=== PATIENT | female | born 1940 | race Caucasian/White ===

== ENCOUNTER 2017-11-19 08:11 | Outpatient (CLI) | payer MEDICARE, MEDICAID ==
[~2017-11-19 08:11] MED LIST: HYDR1TAB PO; INSU100C7 SQ; LORA-258 PO; METF-442 PO
[2017-11-19] MEDS ORDERED: REGADENOSON 0.4 MG/5 ML DISP.SYRIN IVP ONE (09:30)
== END 2017-11-19 23:59 | disposition home or self-care (01) ==
LOC: NM 08:11
PROVIDERS: ATTEND Internal Medicine Interventional Cardiology
DX: I25.10 Atherosclerotic heart disease of native coronary artery without angina pectoris (principal); E11.9 Type 2 diabetes mellitus without complications; I25.2 Old myocardial infarction; E78.5 Hyperlipidemia, unspecified; R53.83 Other fatigue
CPT/HCPCS: 78452; A9502; J2785

== ENCOUNTER 2017-11-23 09:31 | Outpatient (CLI) | payer MEDICARE, MEDICAID ==
[2017-11-23 10:06] LABS: BASOPHILS % (AUTO) 0.4 % (0.0-2.0); EOSINOPHILS % (AUTO) 2.8 % (0.0-6.0); HEMATOCRIT 33 % (33-45); HEMOGLOBIN 10.9 g/dL (11.5-14.8); LYMPHOCYTES % (AUTO) 14.4 % (20.0-44.0); MEAN CORPUSCULAR HGB CONC 34 g/dl (31.0-36.0); MEAN CORPUSCULAR VOLUME 79 fL (82-100); MONOCYTES % (AUTO) 6.3 % (2.0-12.0); NEUTROPHILS # (AUTO) 9.7 /CMM (1.8-8.9); NEUTROPHILS % (AUTO) 76.1 % (43.0-81.0); PLATELET COUNT (AUTO) 395 /CMM (150-450); RDW COEFFICIENT OF VARIATION 14.4 (11.5-15.0); RED BLOOD CELL COUNT(AUTO) 4.13 MIL/uL (4.0-5.2); WHITE BLOOD COUNT (AUTO) 12.8 K/uL (4.3-11.0)
[2017-11-23 10:07] LABS: BASOPHILS # (AUTO) 0.1 /CMM (0.0-0.2); LYMPHOCYTES # (AUTO) 1.8 /CMM (0.8-4.8); MONOCYTES # (AUTO) 0.8 /CMM (0.1-1.30)
[2017-11-23 10:23] LABS: ALANINE AMINOTRANSFERASE 22 U/L (12-78); ALBUMIN 4.1 g/dL (3.4-5.0); ALKALINE PHOSPHATASE 74 U/L (46-116); ASPARTATE AMINOTRANSFERASE 15 U/L (15-37); BILIRUBIN,TOTAL 0.3 mg/dL (0.2-1.0); CALCIUM, SERUM 8.8 mg/dL (8.5-10.1); CARBON DIOXIDE 23 mmol/L (21-32); CHLORIDE 102 mmol/L (98-107); GLUCOSE 187 mg/dL (74-106); POTASSIUM 3.5 mmol/L (3.5-5.1); SODIUM SERUM 139 mmol/L (136-145); TOTAL PROTEIN, SERUM 8.1 g/dL (6.4-8.2); UREA NITROGEN, BLOOD 37 mg/dL (7-18)
[2017-11-23 10:35] LABS: CHOLESTEROL 107 mg/dL (<200); HDL CHOLESTEROL 47 mg/dL (40-60); LDL 44 mg/dL (0-99); THYROID STIMULATING HORMONE 0.316 uIU/mL (0.358-3.74); TRIGLYCERIDES 100 mg/dL (30-150)
== END 2017-11-23 23:59 | disposition home or self-care (01) ==
LOC: LAB 09:31
PROVIDERS: ATTEND Internal Medicine Interventional Cardiology
DX: E11.9 Type 2 diabetes mellitus without complications (principal); I25.10 Atherosclerotic heart disease of native coronary artery without angina pectoris; E78.5 Hyperlipidemia, unspecified; R53.83 Other fatigue
CPT/HCPCS: 36415; 80053-TC; 80061-TC; 84439-TC; 84443-TC; 85025-TC

== ENCOUNTER 2020-04-09 16:19 | Emergency (ER) | payer MEDICARE, OTHER ==
[~2020-04-09] VITALS: Ht 160 cm; Wt 70.3 kg
[~2020-04-09 16:19] MED LIST changes: +ALBU18HF2 IH; +ALPR0.5T8 PO; +AMLO5TAB9 PO; +ASPI-1420 PO; +ATOR40TA PO; +CARV12.52 PO; +CLON0.1T PO; +DULO60CA64 PO; +ERGO500014 PO; +ESOM40CA52 PO; +FERR325T23 PO; +FURO40TA5 PO; +GABA-534 PO; +GLIM4TAB37 PO; -HYDR1TAB PO; +ICOS1CAP PO; -INSU100C7 SQ; +LEVO88TA5 PO; -LORA-258 PO; +LOSA1TAB42 PO; +MECL-159 PO; -METF-442 PO; +MONT10TA22 PO; +OLOP2.5D5 EACHEYE; +SITA1TAB6 PO; +TICA90TA PO
--- NOTE | 2020-04-09 16:19 | NUR ---
PT BIB FAMILY C/O GEN WEAKNESS FOR 2 WEEKS. PT IS AAOX3, NOT IN RESPIRATORY DISTRESS, HOOKED TO STUDENT LIFE COORDINATOR, KEPT RESTED AND COMFORTABLE. WILL CONTINUE TO MONITOR.
--- NOTE | 2020-04-09 16:39 | NUR ---
URINE SPECIMEN COLLECTED AND SENT TO LAB.
--- NOTE | 2020-04-09 16:43 | NUR ---
SEEN AND EXAMINED BY .
--- NOTE | 2020-04-09 16:50 | NUR ---
IV LINE ESTABLISHED BLOOD DRAWN AND SENT TO LAB.
--- NOTE | 2020-04-09 16:55 | NUR ---
FAMILY AT BEDSIDE TO TRANSLATE
[2020-04-09 16:58] LABS: BASOPHILS # (AUTO) 0.1 /CMM (0.0-0.2); BASOPHILS % (AUTO) 0.6 % (0.0-2.0); EOSINOPHILS % (AUTO) 1.6 % (0.0-6.0); HEMATOCRIT 36 % (33-45); HEMOGLOBIN 11.5 g/dL (11.5-14.8); LYMPHOCYTES # (AUTO) 1.4 /CMM (0.8-4.8); LYMPHOCYTES % (AUTO) 13.1 % (20.0-44.0); MEAN CORPUSCULAR HGB CONC 32 g/dl (31.0-36.0); MEAN CORPUSCULAR VOLUME 85 fL (82-100); MONOCYTES # (AUTO) 0.8 /CMM (0.1-1.30); MONOCYTES % (AUTO) 7.8 % (2.0-12.0); NEUTROPHILS # (AUTO) 8.3 /CMM (1.8-8.9); NEUTROPHILS % (AUTO) 76.9 % (43.0-81.0); PLATELET COUNT (AUTO) 312 /CMM (150-450); RED BLOOD CELL COUNT(AUTO) 4.19 MIL/uL (4.0-5.2); WHITE BLOOD COUNT (AUTO) 10.9 K/uL (4.3-11.0)
[2020-04-09] MEDS ORDERED: ASCO500T20 PO (16:58)
[2020-04-09] MEDS ORDERED: ZOLP5TAB8 PO (16:58)
[2020-04-09] MEDS ORDERED: RIVA2.5T PO (16:58)
[2020-04-09] MEDS ORDERED: AMLO10TA7 PO (16:58)
[2020-04-09] MEDS ORDERED: HYDR25TA4 PO (16:58)
[2020-04-09] MEDS ORDERED: OMEP40CA13 PO (16:58)
[2020-04-09] MEDS ORDERED: HYDR-4077 PO (16:58)
[2020-04-09] MEDS ORDERED: LEVO100T9 PO (16:58)
[2020-04-09] MEDS ORDERED: DOXA2TAB2 PO (16:58)
[2020-04-09] MEDS ORDERED: TELM80TA9 PO (16:58)
[2020-04-09 17:03] LABS: APPEARANCE,URINE Clear (CLEAR); BILIRUBIN,URINE Negative (NEGATIVE); BLOOD, URINE Negative Ery/uL (NEGATIVE); COLOR,URINE Yellow (YELLOW); KETONES,URINE Negative (NEGATIVE); LEUKOCYTE ESTERASE ,URINE Negative (NEGATIVE); NITRITE, URINE Negative (NEGATIVE); PH,URINE 5.5 (5.0-8.0); PROTEIN,URINE Negative (NEGATIVE); UGLUCOSE Negative (NEGATIVE); UROBILINOGEN,URINE 0.2 EU/dL (0.2)
--- NOTE | 2020-04-09 17:05 | NUR ---
SURVEILLANCE AGENT AT BEDSIDE FOR XRAY.
--- NOTE | 2020-04-09 17:14 | NUR ---
PT IS WHEELED TO CT SCAN VIA [facility].
[2020-04-09 17:17] LABS: CALCIUM, SERUM 8.3 mg/dL (8.5-10.1); CARBON DIOXIDE 29 mmol/L (21-32); CHLORIDE 99 mmol/L (98-107); CREATININE 2.4 mg/dL (0.6-1.3); GLUCOSE 331 mg/dL (74-106); POTASSIUM 3.9 mmol/L (3.5-5.1); SODIUM SERUM 138 mmol/L (136-145); UREA NITROGEN, BLOOD 41 mg/dL (7-18)
[2020-04-09 17:29] LABS: ALANINE AMINOTRANSFERASE 20 U/L (12-78); ALBUMIN 3.8 g/dL (3.4-5.0); ALKALINE PHOSPHATASE 70 U/L (46-116); ASPARTATE AMINOTRANSFERASE 10 U/L (15-37); B-TYPE NATRIURETIC PEPTIDE 3000 PG/ML (0-125); BILIRUBIN,DIRECT 0.2 mg/dL (0.0-0.2); BILIRUBIN,TOTAL 0.3 mg/dL (0.2-1.0); TOTAL PROTEIN, SERUM 7.1 g/dL (6.4-8.2)
[2020-04-09 17:31] LABS: THYROID STIMULATING HORMONE 8.529 uIU/mL (0.358-3.74)
--- NOTE | 2020-04-09 17:58 | NUR ---
CALLED DR. GUTIERREZ
[2020-04-09 18:17] LABS: MAGNESIUM 1.7 mg/dL (1.8-2.4)
[2020-04-09 18:49] VITALS: BP 137/88
--- NOTE | 2020-04-09 18:49 | NUR ---
IV removed. Catheter intact and site benign. Pressure and 4x4 applied to site. No bleeding noted. Patient discharged to home in stable condition. Written and verbal after care instructions given. Patient verbalizes understanding of instruction.
== END 2020-04-09 18:50 | disposition home or self-care (01) ==
LOC: IVT 16:28 → ER 18:50
DX: R53.1 Weakness (principal); G47.00 Insomnia, unspecified; R51 Headache; I13.0 Hypertensive heart and chronic kidney disease with heart failure and stage 1 through stage 4 chronic kidney disease, or unspecified chronic kidney disease; E11.22 Type 2 diabetes mellitus with diabetic chronic kidney disease; N18.9 Chronic kidney disease, unspecified; I50.9 Heart failure, unspecified; D63.1 Anemia in chronic kidney disease; E03.9 Hypothyroidism, unspecified; F41.9 Anxiety disorder, unspecified; E78.5 Hyperlipidemia, unspecified; I25.10 Atherosclerotic heart disease of native coronary artery without angina pectoris; Z98.890 Other specified postprocedural states; Z79.899 Other long term (current) drug therapy; Z79.82 Long term (current) use of aspirin
CPT/HCPCS: 36415; 70450-TC; 71045-TC; 80048-TC; 80076-TC; 81000-TC; 83735-TC; 83880; 84439-TC; 84443-TC; 84484-TC; 85025-TC; 85730-TC

== ENCOUNTER 2022-05-28 13:55 | Inpatient (IN) | payer MEDICARE, OTHER ==
[~2022-05-28] VITALS: Ht 160 cm; Wt 63.5 kg
[~2022-05-28 13:55] MED LIST changes: +AMLO-213 PO; -AMLO5TAB9 PO; +ASCO500T20 PO; +DOXA2TAB2 PO; -DULO60CA64 PO; -ESOM40CA52 PO; +HYDR-4077 PO; +HYDR25TA4 PO; +LEVO100T9 PO; -LEVO88TA5 PO; -MONT10TA22 PO; +OMEP40CA21 PO; +RIVA2.5T PO; +TELM80TA9 PO; +ZOLP5TAB8 PO
--- NOTE | 2022-05-28 14:05 | NUR ---
BIB RA 37 FROM HOME,WORSENING SOB,DISCHARGED FROM [facility] 2 DAYS AGO AND ADMITTED FOR HEART FAILURE
--- NOTE | 2022-05-28 14:08 | NUR ---
ESTABLISHED IV LINE 20 G RIGHT AC , BLOOD SAMPLE OBTAINED SENT TO LAB
--- NOTE | 2022-05-28 14:20 | NUR ---
XRAY TECHAT BEDSIDE
[2022-05-28 14:34] LABS: BASOPHILS # (AUTO) 0.1 K/uL (0.0-0.2); BASOPHILS % (AUTO) 0.6 % (0.0-2.0); EOSINOPHILS % (AUTO) 3.9 % (0.0-6.0); HEMATOCRIT 38 % (33-45); HEMOGLOBIN 12.2 g/dL (11.5-14.8); LYMPHOCYTES # (AUTO) 1.9 K/uL (0.8-4.8); MEAN CORPUSCULAR HGB CONC 32 g/dl (31.0-36.0); MEAN CORPUSCULAR VOLUME 85 fL (82-100); MONOCYTES % (AUTO) 10.6 % (2.0-12.0); NEUTROPHILS # (AUTO) 6.3 K/uL (1.8-8.9); NEUTROPHILS % (AUTO) 64.9 % (43.0-81.0); PLATELET COUNT (AUTO) 343 K/uL (150-450); RED BLOOD CELL COUNT(AUTO) 4.53 MIL/uL (4.0-5.2); WHITE BLOOD COUNT (AUTO) 9.6 K/uL (4.3-11.0)
[2022-05-28 15:33] LABS: CALCIUM, SERUM 8.5 mg/dL (8.5-10.1); CARBON DIOXIDE 32 mmol/L (21-32); CHLORIDE 100 mmol/L (98-107); GLUCOSE 226 mg/dL (74-106); POTASSIUM 4.3 mmol/L (3.5-5.1); SODIUM SERUM 140 mmol/L (136-145); UREA NITROGEN, BLOOD 43 mg/dL (7-18)
--- NOTE | 2022-05-28 16:40 | NUR ---
COVID SWAB DONE
--- NOTE | 2022-05-28 16:50 | NUR ---
HELPED GOING TO THE BATHROOM
--- NOTE | 2022-05-28 17:00 | NUR ---
PT MEAL SERVED
--- NOTE | 2022-05-28 17:25 | NUR ---
TECH AT BED SIDE FOR ECHOCARDIOGRAM
--- NOTE | 2022-05-28 17:32 | NUR ---
[facility] CALLED GERMINATION TESTING MANAGER PAGED.
[2022-05-28] MEDS ORDERED: ALBUTEROL FS 2.5 MG/0.5 ML VIAL.NEB NEB PRN (19:00)
[2022-05-28] MEDS ORDERED: hydrALAZINE HCL IV 20 MG VIAL IV ONE (19:00)
--- NOTE | 2022-05-28 20:11 | NUR ---
TELE 105
[2022-05-28] MEDS ORDERED: hydrALAZINE HCL IV 20 MG VIAL ONE (20:20)
--- NOTE | 2022-05-28 20:23 | NUR ---
called for report. rn will call back
--- NOTE | 2022-05-28 20:47 | NUR ---
REPORT GIVEN TO CHUN
--- NOTE | 2022-05-28 20:55 | NUR ---
PT TRANSPORTED TO ROOM 105 ON CARDIAC PER ACLS IN STABLE CONDITION
[2022-05-28 21:00] VITALS: BP 101/67
[2022-05-28] MEDS ORDERED: BUMETANIDE INJ 4 MG in IV NS 0.9% 24 ML IV ONE (21:00)
[2022-05-28] MEDS ORDERED: Z GUARD REMEDY 4 OZ OINT TP PRN (21:00)
[2022-05-28] MEDS ORDERED: ONDANSETRON HCL/PF 4 MG/2 ML VIAL IVP PRN (21:00)
--- NOTE | 2022-05-28 21:10 | NUR ---
ADMISSION RN NOTES, AT 2100 RECEIVED 81 YO FEMALE ADMITTED FROM ER DEPARTMENT UNDER MEDICAL SERVICES OF DR PRISCILLA MOORE, WITH DX CHF, PATIENT AT ROOM AIR, NO SOB/ACUTE DISTRESS NOTED, NSR IN TELE MONITOR, IV LINE IN RIGHT AC, 20G PATENT AND INTACT, AFEBRILE WITH VS STABLE, SKIN INTACT, WILL FOLLOW UP WITH ADMITTING ORDERS, WILL CONTINUE TO MONITOR CLOSELY.
[2022-05-28] MEDS ORDERED: ENOXAPARIN SODIUM 30 MG/0.3 ML DISP.SYRIN SQ SCH (21:30)
[2022-05-28] MEDS ORDERED: BUMETANIDE INJ 0.25 MG/ML VIAL ONE (21:44)
[2022-05-28] MEDS: ATORVASTATIN 40 MG TABLET PO SCH (21:47)
[2022-05-28] MEDS ORDERED: DEXTROSE 50%-WATER 50 ML DISP.SYRIN IV PRN (23:00)
--- NOTE | 2022-05-28 23:01 | NUR ---
Informed Rl He HARDBOARD GRINDER that patient is diabetic and theres no accucheck ordered, blood sugar 252mg/dL and pt refused any insulin if ordered, patient will never take insulin, and she is taking PO med for DM at home, which Danielle held for now, Rl He practice consultant replied hat he ordered sliding scale.
[2022-05-29] VITALS: BP 139/43
[2022-05-29] MEDS: ACETAMINOPHEN 325 MG TABLET PO PRN (01:17)
[2022-05-29 04:00] VITALS: BP 143/47
[2022-05-29 06:41] LABS: BASOPHILS # (AUTO) 0.1 K/uL (0.0-0.2); BASOPHILS % (AUTO) 0.6 % (0.0-2.0); HEMATOCRIT 38 % (33-45); HEMOGLOBIN 12.2 g/dL (11.5-14.8); LYMPHOCYTES # (AUTO) 1.9 K/uL (0.8-4.8); LYMPHOCYTES % (AUTO) 20.3 % (20.0-44.0); MEAN CORPUSCULAR HGB CONC 33 g/dl (31.0-36.0); MEAN CORPUSCULAR VOLUME 84 fL (82-100); MONOCYTES % (AUTO) 10.9 % (2.0-12.0); NEUTROPHILS # (AUTO) 5.8 K/uL (1.8-8.9); NEUTROPHILS % (AUTO) 63.2 % (43.0-81.0); PLATELET COUNT (AUTO) 333 K/uL (150-450); RED BLOOD CELL COUNT(AUTO) 4.44 MIL/uL (4.0-5.2); WHITE BLOOD COUNT (AUTO) 9.2 K/uL (4.3-11.0)
--- NOTE | 2022-05-29 06:47 | NUR ---
ND OF SHIFT, PATIENT IN BED, AWAKE A/O X4, ABLE TO VERBALIZE NEEDS AND CONCERNS, AT ROOM AIR, NO SOB/ACUTE DISTRESS NOTED, NSR IN TELE MONITOR, BUMEX IV DRIP ADMINISTERED ORDERED, [facility]P AMBULATORY, SKIN INTACT, OTHERWISE NO SIGNIFICANT CHANGE IN CONDITION DURING THE NIGHT, WILL ENDORSE CONTINUITY OF CARE TO ONCOMING NURSE.
[2022-05-29 07:00] LABS: ALANINE AMINOTRANSFERASE 29 U/L (12-78); ASPARTATE AMINOTRANSFERASE 22 U/L (15-37); BILIRUBIN,TOTAL 0.4 mg/dL (0.2-1.0); CARBON DIOXIDE 30 mmol/L (21-32); CHLORIDE 100 mmol/L (98-107); CREATININE 2.7 mg/dL (0.6-1.3); GLUCOSE 166 mg/dL (74-106); MAGNESIUM 1.7 mg/dL (1.8-2.4); PHOSPHORUS 4.3 mg/dL (2.5-4.9); POTASSIUM 3.8 mmol/L (3.5-5.1); SODIUM SERUM 142 mmol/L (136-145); TOTAL PROTEIN, SERUM 7.2 g/dL (6.4-8.2); UREA NITROGEN, BLOOD 43 mg/dL (7-18)
[2022-05-29 07:07] LABS: CHOLESTEROL 130 mg/dL (<200); HDL CHOLESTEROL 51 mg/dL (40-60); LDL 59 mg/dL (0-99); TRIGLYCERIDES 131 mg/dL (30-150)
[2022-05-29 07:17] LABS: ALBUMIN 3.7 g/dL (3.4-5.0); ALKALINE PHOSPHATASE 69 U/L (46-116)
--- NOTE | 2022-05-29 07:29 | NUR ---
PHYS ASSISTANT OPENING NOTES PATIENT IN BED, AWAKE A/O X4, ABLE TO VERBALIZE NEEDS AND CONCERNS, AT ROOM AIR, NO SOB/ACUTE DISTRESS NOTED, DENIES ANY PAIN, NSR IN TELE MONITOR HR 70. NOTED WITH RIGHT AC PERIPHERAL LINE NOTED INTACT. [facility] AMBULATORY, SKIN INTACT. BED IN LOWEST POSITION. CALL LIGHT WITHIN REACH. WILL CONTINUE PLAN OF CARE.
[2022-05-29] MEDS: BLOOD SUGAR DIAGNOSTIC 1 EACH STRIP IN SCH ×4 (07:42→23:09)
[2022-05-29] MEDS: LEVOTHYROXINE SODIUM 100 MCG TABLET PO SCH (07:48)
[2022-05-29] MEDS: PANTOPRAZOLE 40 MG TABLET.DR PO SCH (07:48)
[2022-05-29 08:00] VITALS: BP 153/68
[2022-05-29] MEDS: GABAPENTIN 300 MG CAPSULE PO SCH ×3 (08:22→16:42)
[2022-05-29] MEDS: ASCORBIC ACID 500 MG TABLET PO SCH (08:22)
[2022-05-29] MEDS: ASPIRIN EC 81 MG TABLET.DR PO SCH (08:23)
[2022-05-29] MEDS: CARVEDILOL 12.5 MG TABLET PO SCH ×2 (08:23→17:18)
[2022-05-29] MEDS: AMLODIPINE BESYLATE 10 MG TABLET PO SCH (08:23)
[2022-05-29] MEDS: ALPRAZOLAM 0.5 MG TABLET PO SCH ×2 (08:23→09:00)
[2022-05-29] MEDS: hydrALAZINE HCL 50 MG TABLET PO SCH ×3 (08:23→17:18)
[2022-05-29] MEDS ORDERED: HYDROCHLOROTHIAZIDE 25 MG TABLET PO SCH (09:00)
[2022-05-29] MEDS: TICAGRELOR 90 MG TABLET PO SCH ×2 (09:35→16:43)
[2022-05-29] MEDS: RIVAROXABAN 10 MG TABLET PO SCH ×2 (09:36→17:19)
--- NOTE | 2022-05-29 09:55 | NUR ---
BUSINESS INTELLIGENCE MANAGER NOTES PATIENT SUGAR IS 196 MG/DL, PATIENT REFUSED INSULIN, PER PATIENT SHE IS TAKING GLIMEPIRIDE AND METFORMIN AT HOME, NOTED DR. OSCAR WELLS HELD THIS MEDICATIONS, NO S/SX OF HYPERGLYCEMIA, INFORMED ARY ROWELL WHO'S WORKING WITH DR. OSCAR WELLS, AND INFORMED TOO THAT PATIENT'S DAUGHTER WANT'S TO TALK TO THE DOCTOR. WILL CONTINUE PLAN OF CARE.
[2022-05-29 12:00] VITALS: BP 131/56
[2022-05-29] MEDS: INSULIN REGULAR, HUMAN 100 UNIT/ML 3 ML VIAL SQ PRN ×3 (12:33→23:07)
--- NOTE | 2022-05-29 12:39 | NUR ---
DISTRIBUTION CENTER ASSOCIATE NOTES NOTED BLOOD SUGAR IS 300MG/DL, EDUCATE PATIENT ABOUT THE NEED OF INSULIN, PATIENT STILL REFUSED INSULIN PER SLIDING SCALE, INFORMED DR. WELLS WITH NEW ORDER TO RESUME METFORMIN AND GLIMEPIRIDE. NOTED AND CARRIED OUT. PATIENT COMPLAINED OF DIZZINESS, EDUCATE PATIENT THAT SHE NEEDS THE INSULIN DUE TO SUGAR IS 300, PATIENT AGREED, 6 UNITS OF INSULIN GIVEN.
[2022-05-29] MEDS ORDERED: MAGNESIUM OXIDE 400 MG TABLET PO SCH (13:00)
[2022-05-29] MEDS: BUMETANIDE INJ 4 MG in IV NS 0.9% 24 ML IV ONE ×2 (14:00→14:11)
[2022-05-29] MEDS ORDERED: SITAGLIPTIN PHOSPHATE 50 MG TABLET PO SCH (14:00)
--- NOTE | 2022-05-29 15:16 | NUR ---
CHINESE MEDICINE PRACTITIONER NOTES PATIENT'S DAUGHTER WANT'S TO TALK TO DR PRISCILLA MD NOTIFIED.
[2022-05-29 16:00] VITALS: BP 156/61
--- NOTE | 2022-05-29 16:09 | NUR ---
ASSOCIATE DEAN OF STUDENTS NOTES CLARIFIED ORDER WITH DR. GUTIERREZ ABOUT HOLDING DIURETICS, WITH ORDER TO HOLD BUMEX, NOTED AND CARRIED OUT.
[2022-05-29] MEDS: GLIMEPIRIDE 4 MG TABLET PO SCH (16:42)
[2022-05-29] MEDS ORDERED: METFORMIN 500 MG TABLET PO SCH (17:00)
--- NOTE | 2022-05-29 17:42 | NUR ---
MARKETING COMMUNICATIONS LEADER NOTES MAGNESIUM OXIDE GIVEN PER MD'S ORDER DUE TO HYPOMAGNESEMIA WILL CONTINUE PLAN OF CARE.
--- NOTE | 2022-05-29 18:17 | NUR ---
TAXONOMIST CLOSING NOTES PATIENT IN BED AWAKE FAMILY AT THE BEDSIDE, A/O X4, ABLE TO VERBALIZE NEEDS AND CONCERNS, AT ROOM AIR SATURATING AT 99%M NO SOB/ACUTE DISTRESS NOTED, DENIES ANY PAIN AT THIS MOMENT. NSR IN TELE MONITOR. NOTED WITH RIGHT AC PERIPHERAL LINE NOTED PATENT AND INTACT. [facility]P AMBULATORY, SKIN INTACT. BED IN LOWEST POSITION. CALL LIGHT WITHIN REACH. WILL ENDORSE TO SAP PORTAL CONSULTANT NURSE FOR JAX.
[2022-05-29 20:00] VITALS: BP 118/49
--- NOTE | 2022-05-29 20:00 | NUR ---
TALENT PARTNER OPENING NOTES RECEIVED PATIENT IN BED, AWAKE A/O X4 ,V/S STABLE AFEBRILE , ON ROOM AIR, NO SOB NO DISTRESS NOTED, DENIES ANY PAIN, SR IN TELE MONITOR HR 72. NOTED WITH RIGHT AC G#20 PATENT AND INTACT. ALL DUE MEDS GIVEN ORDERED BRP AMBULATORY, SKIN INTACT. BED IN LOWEST POSITION. CALL LIGHT WITHIN REACH. WILL CONTINUE TO MONITOR.
[2022-05-29] MEDS: ATORVASTATIN 40 MG TABLET PO SCH (21:14)
--- NOTE | 2022-05-29 23:11 | NUR ---
television maintenance worker notes Blood sugar for 10pm is 220mg/dl 4 units of regular insulin business reporting developer per sliding scale. pts on po diet.
[2022-05-30] VITALS: BP 151/57
[2022-05-30 04:00] VITALS: BP 111/63
--- NOTE | 2022-05-30 06:45 | NUR ---
TD RN NOTES PATIENT REMAIN IN BED AWAKE, A&O X4, V/S STABLE AFEBRILE .R/A NO S/S OF RESP DISTRESS, NO SOB NOTED .BREATHING EVEN NON-LABORED ,DUE . DENIES PAIN OR CHEST DISCOMFORT. BED IN LOWEST POSITION, CALL LIGHT WITHIN REACH, WILL ENDORSE PTS TO DAY SHIFT FOR CONTINUITY OF CARE. Addendum: 05/30/22 at 0650 by RAJESH GALEANO RN PTS IS ON TELE STATUS NOT EDWIN
--- NOTE | 2022-05-30 07:20 | NUR ---
GERIATRIC CARE MANAGER OPENING NOTES PATIENT IN BED, AWAKE A/O X4, ABLE TO VERBALIZE NEEDS AND CONCERNS, AT ROOM AIR, NO SOB/ACUTE DISTRESS NOTED, DENIES ANY PAIN, Normal sinus rhytm IN TELE MONITOR. NOTED RIGHT AC PERIPHERAL LINE NOTED INTACT. BRP AMBULATORY, SKIN INTACT. all safety measures in place. call light within reach. BED IN LOWEST POSITION. CALL LIGHT WITHIN REACH.bed alarm on
[2022-05-30 07:30] LABS: ALANINE AMINOTRANSFERASE 25 U/L (12-78); ALBUMIN 3.5 g/dL (3.4-5.0); ALKALINE PHOSPHATASE 67 U/L (46-116); ASPARTATE AMINOTRANSFERASE 21 U/L (15-37); BILIRUBIN,TOTAL 0.4 mg/dL (0.2-1.0); CALCIUM, SERUM 9.1 mg/dL (8.5-10.1); CARBON DIOXIDE 29 mmol/L (21-32); CHLORIDE 102 mmol/L (98-107); GLUCOSE 125 mg/dL (74-106); MAGNESIUM 1.9 mg/dL (1.8-2.4); POTASSIUM 3.7 mmol/L (3.5-5.1); SODIUM SERUM 142 mmol/L (136-145); UREA NITROGEN, BLOOD 51 mg/dL (7-18)
[2022-05-30] MEDS: BLOOD SUGAR DIAGNOSTIC 1 EACH STRIP IN SCH ×2 (07:34→13:05)
[2022-05-30] MEDS: LEVOTHYROXINE SODIUM 100 MCG TABLET PO SCH (07:42)
[2022-05-30] MEDS: PANTOPRAZOLE 40 MG TABLET.DR PO SCH (07:42)
[2022-05-30] MEDS: INSULIN REGULAR, HUMAN 100 UNIT/ML 3 ML VIAL SQ PRN ×2 (07:45→13:24)
[2022-05-30 08:00] VITALS: BP 154/71
[2022-05-30 08:16] LABS: BASOPHILS # (AUTO) 0.1 K/uL (0.0-0.2); BASOPHILS % (AUTO) 0.6 % (0.0-2.0); EOSINOPHILS % (AUTO) 4.7 % (0.0-6.0); HEMATOCRIT 38 % (33-45); HEMOGLOBIN 12.7 g/dL (11.5-14.8); LYMPHOCYTES # (AUTO) 1.8 K/uL (0.8-4.8); LYMPHOCYTES % (AUTO) 17.5 % (20.0-44.0); MEAN CORPUSCULAR HGB CONC 33 g/dl (31.0-36.0); MEAN CORPUSCULAR VOLUME 83 fL (82-100); MONOCYTES # (AUTO) 1.1 K/uL (0.1-1.30); MONOCYTES % (AUTO) 10.9 % (2.0-12.0); NEUTROPHILS # (AUTO) 6.9 K/uL (1.8-8.9); NEUTROPHILS % (AUTO) 66.3 % (43.0-81.0); PLATELET COUNT (AUTO) 352 K/uL (150-450); RED BLOOD CELL COUNT(AUTO) 4.59 MIL/uL (4.0-5.2); WHITE BLOOD COUNT (AUTO) 10.4 K/uL (4.3-11.0)
[2022-05-30] MEDS ORDERED: SITAGLIPTIN PHOSPHATE 50 MG TABLET PO SCH (09:00)
[2022-05-30] MEDS ORDERED: LINAGLIPTIN 5 MG TABLET PO SCH (09:00)
[2022-05-30] MEDS: GABAPENTIN 300 MG CAPSULE PO SCH ×3 (09:00→13:00)
[2022-05-30] MEDS: ASPIRIN EC 81 MG TABLET.DR PO SCH (09:23)
[2022-05-30] MEDS: hydrALAZINE HCL 50 MG TABLET PO SCH ×2 (09:23→13:00)
[2022-05-30] MEDS: AMLODIPINE BESYLATE 10 MG TABLET PO SCH (09:24)
[2022-05-30] MEDS: ASCORBIC ACID 500 MG TABLET PO SCH (09:24)
[2022-05-30] MEDS: RIVAROXABAN 10 MG TABLET PO SCH (09:25)
[2022-05-30] MEDS: TICAGRELOR 90 MG TABLET PO SCH (09:34)
[2022-05-30] MEDS: GLIMEPIRIDE 4 MG TABLET PO SCH (09:34)
[2022-05-30] MEDS: CARVEDILOL 12.5 MG TABLET PO SCH (09:36)
[2022-05-30] MEDS: ACETAMINOPHEN 325 MG TABLET PO PRN (10:55)
[2022-05-30] MEDS: ALPRAZOLAM 0.5 MG TABLET PO SCH (11:10)
[2022-05-30 12:00] VITALS: BP 127/53
[2022-05-30 13:00] VITALS: BP 122/53
--- NOTE | 2022-05-30 13:00 | NUR ---
rn note notified that pt family would like to speak with him. at bedside
--- NOTE | 2022-05-30 13:42 | NUR ---
furniture removalist's assistant note patient discharged. removed iv. returned patient belongings and tele box. went over discharge instructions with patient and daughters. patient and daughters verbalized understanding. patient discharged stable condition.
== END 2022-05-30 16:35 | disposition home or self-care (01) | DRG 291 ==
LOC: ER 14:01 → TELE1 20:15
PROVIDERS: ADMIT Nurse Practitioner Acute Care; ATTEND Nurse Practitioner Acute Care
DX: I13.0 Hypertensive heart and chronic kidney disease with heart failure and stage 1 through stage 4 chronic kidney disease, or unspecified chronic kidney disease (principal); I50.33 Acute on chronic diastolic (congestive) heart failure; N17.0 Acute kidney failure with tubular necrosis; D68.59 Other primary thrombophilia; N18.4 Chronic kidney disease, stage 4 (severe); Z20.822 Contact with and (suspected) exposure to COVID-19; I25.10 Atherosclerotic heart disease of native coronary artery without angina pectoris; E11.22 Type 2 diabetes mellitus with diabetic chronic kidney disease; Z79.82 Long term (current) use of aspirin; Z79.84 Long term (current) use of oral hypoglycemic drugs; Z79.51 Long term (current) use of inhaled steroids; I34.0 Nonrheumatic mitral (valve) insufficiency; E03.9 Hypothyroidism, unspecified; E83.42 Hypomagnesemia; Z79.02 Long term (current) use of antithrombotics/antiplatelets; Z79.899 Other long term (current) drug therapy; Z79.01 Long term (current) use of anticoagulants; Z53.20 Procedure and treatment not carried out because of patient's decision for unspecified reasons; Z79.890 Hormone replacement therapy; Z86.73 Personal history of transient ischemic attack (TIA), and cerebral infarction without residual deficits; Z98.61 Coronary angioplasty status; N26.1 Atrophy of kidney (terminal); I27.20 Pulmonary hypertension, unspecified
CPT/HCPCS: 36415; 71045-TC; 76770-TC; 80048-TC; 80053-TC; 80061-TC; 82962-TC; 83735-TC; 83880; 84100-TC; 84484-TC; 85025-TC; 93307-TC; 93970-TC; A6253; C9803; G0378; J0360; J1650; J1815; J3490; J7030; J7050

== ENCOUNTER 2022-06-26 18:30 | Inpatient (IN) | payer MEDICARE, OTHER ==
[~2022-06-26] VITALS: Ht 160 cm; Wt 79.0 kg
--- NOTE | 2022-06-26 18:58 | NUR ---
PLEASE CALL IF LLUVIA NOT RESPONDING, [facility] [phone]
[2022-06-26] MEDS ORDERED: ACETAMINOPHEN ES 500 MG TABLET PO ONE (19:30)
[2022-06-26] MEDS ORDERED: ACETAMINOPHEN ES 500 MG TABLET ONE (19:36)
[2022-06-26 20:32] LABS: BASOPHILS % (AUTO) 0.2 % (0.0-2.0); EOSINOPHILS % (AUTO) 1.1 % (0.0-6.0); HEMATOCRIT 29 % (33-45); HEMOGLOBIN 9.3 g/dL (11.5-14.8); LYMPHOCYTES # (AUTO) 0.6 K/uL (0.8-4.8); LYMPHOCYTES % (AUTO) 4.2 % (20.0-44.0); MEAN CORPUSCULAR HGB CONC 32 g/dl (31.0-36.0); MEAN CORPUSCULAR VOLUME 87 fL (82-100); MONOCYTES # (AUTO) 1.1 K/uL (0.1-1.30); MONOCYTES % (AUTO) 8.8 % (2.0-12.0); NEUTROPHILS # (AUTO) 11.2 K/uL (1.8-8.9); NEUTROPHILS % (AUTO) 85.7 % (43.0-81.0); PLATELET COUNT (AUTO) 242 K/uL (150-450); WHITE BLOOD COUNT (AUTO) 13.1 K/uL (4.3-11.0)
[2022-06-26 20:41] LABS: CALCIUM, SERUM 7.4 mg/dL (8.5-10.1); CARBON DIOXIDE 20 mmol/L (21-32); CHLORIDE 105 mmol/L (98-107); GLUCOSE 161 mg/dL (74-106); POTASSIUM 5.3 mmol/L (3.5-5.1); SODIUM SERUM 132 mmol/L (136-145)
[2022-06-26 20:43] LABS: UREA NITROGEN, BLOOD 87 mg/dL (7-18)
--- NOTE | 2022-06-26 20:46 | NUR ---
CRITICAL LAB BUN 87; MD NOTIFIED
--- NOTE | 2022-06-26 20:50 | NUR ---
UPDATED LLUVIA (DAUGHTER) [phone]
[2022-06-26] MEDS ORDERED: FUROSEMIDE 20 MG/2 ML VIAL IV ONE (21:30)
[2022-06-26] MEDS ORDERED: FUROSEMIDE 20 MG/2 ML VIAL ONE (21:37)
[2022-06-26] MEDS ORDERED: DEXTROSE 50%-WATER 50 ML DISP.SYRIN IV PRN (22:00)
[2022-06-26] MEDS ORDERED: Z GUARD REMEDY 4 OZ OINT TP PRN (22:00)
[2022-06-26] MEDS ORDERED: ZOLPIDEM TARTRATE 5 MG TABLET PO PRN (22:00)
[2022-06-26] MEDS ORDERED: ALBUTEROL SULFATE 8 GM HFA.AER.AD IH PRN (22:00)
[2022-06-26] MEDS ORDERED: ACETAMINOPHEN 325 MG TABLET PO PRN (22:00)
[2022-06-26] MEDS ORDERED: ONDANSETRON HCL/PF 4 MG/2 ML VIAL IVP PRN (22:00)
[2022-06-26] MEDS ORDERED: CLONIDINE HCL 0.1 MG TABLET PO PRN (22:00)
[2022-06-26] MEDS ORDERED: MAG HYDROX/AL HYDROX/SIMETH 30 ML UDC PO PRN (22:00)
[2022-06-26] MEDS: BLOOD SUGAR DIAGNOSTIC 1 EACH STRIP VI SCH (22:45)
--- NOTE | 2022-06-27 00:21 | NUR ---
REGULATORY COMPLIANCE SPECIALIST AT PT'S BEDSIDE
[2022-06-27 00:47] LABS: BILIRUBIN,URINE NEGATIVE (NEGATIVE); COLOR,URINE YELLOW (YELLOW); LEUKOCYTE ESTERASE ,URINE NEGATIVE (NEGATIVE); NITRITE, URINE NEGATIVE (NEGATIVE); PH,URINE 5.5 (5.0-8.0); PROTEIN,URINE NEGATIVE (NEGATIVE); UGLUCOSE NEGATIVE (NEGATIVE); UROBILINOGEN,URINE 0.2 EU/dL (0.2)
--- NOTE | 2022-06-27 00:50 | NUR ---
REPOSITIONED PATIENT COMFORTABLY
--- NOTE | 2022-06-27 01:48 | NUR ---
REPORT GIVEN TO KRISH SOLER.
--- NOTE | 2022-06-27 02:08 | NUR ---
CALLED DAUGHTER LLUVIA THAT PATIENT WILL BE IN ROOM 307-1.
--- NOTE | 2022-06-27 02:12 | NUR ---
PT TRANSFERRING TO [facility]- VIA HOSPITAL PROTOCOL. VSS. ALL BELONGINGS WITH PT.
[2022-06-27 02:20] VITALS: BP 116/49
--- NOTE | 2022-06-27 02:38 | NUR ---
TRANSFERRED TO ROOM
--- NOTE | 2022-06-27 02:45 | NUR ---
CREDENTIALING ANALYSTDAYTIME CAREGIVER NOTE 0215 - RECEIVED PATIENT FROM ER VIA GURNEY. PATIENT IS AWAKE, ALERT AND ORIENTED X 2. PATIENT IS AMBULATORY. ON ROOM AIR; TOLERATING WELL. ABLE TO MAKE NEEDS KNOWN. BREATHING EVEN AND NONLABORED. IN NO ACUTE DISTRESS. DENIES ANY PAIN OR DISCOMFORT AT THIS TIME. ON TELEMETRY MONITORING WHICH READS SINUS BRADYCARDIA WITH BBB HR-49 BPM. VITAL SIGNS TAKEN AND RECORDED FOLLOWS: T-97.8, MS-48, RR-18, O2 SAT-98%, BP-116/49 MM HG. BODY ASSESSMENT DONE; PICTURES TAKEN AND PLACED TO CHART. SAFETY PRECAUTIONS IMPLEMENTED: CALL LIGHT AND TABLE WITHIN REACH, SIDE RAILS UP X 3, BED IN LOWEST LOCKED POSITION. WILL CONTINUE TO MONITOR THROUGHOUT SHIFT.
[2022-06-27] MEDS ORDERED: CEFTRIAXONE 1 G in IV D5W 50 ML IV SCH ×2 (03:28→23:00)
[2022-06-27] MEDS ORDERED: CEFTRIAXONE 1 G VIAL ONE (03:37)
[2022-06-27] MEDS: IV 1/2NS 1000 ML 1,000 ML IV PRN (03:39)
[2022-06-27] MEDS ORDERED: ALBUTEROL FS 2.5 MG/3 ML VIAL.NEB NEB PRN (04:00)
[2022-06-27 05:58] LABS: BASOPHILS % (AUTO) 0.2 % (0.0-2.0); EOSINOPHILS % (AUTO) 0.7 % (0.0-6.0); HEMATOCRIT 31 % (33-45); HEMOGLOBIN 9.8 g/dL (11.5-14.8); LYMPHOCYTES # (AUTO) 0.6 K/uL (0.8-4.8); LYMPHOCYTES % (AUTO) 5.9 % (20.0-44.0); MEAN CORPUSCULAR HGB CONC 32 g/dl (31.0-36.0); MEAN CORPUSCULAR VOLUME 86 fL (82-100); MONOCYTES # (AUTO) 0.9 K/uL (0.1-1.30); MONOCYTES % (AUTO) 8.5 % (2.0-12.0); NEUTROPHILS % (AUTO) 84.7 % (43.0-81.0); PLATELET COUNT (AUTO) 232 K/uL (150-450); RED BLOOD CELL COUNT(AUTO) 3.59 MIL/uL (4.0-5.2); WHITE BLOOD COUNT (AUTO) 10.7 K/uL (4.3-11.0)
[2022-06-27] MEDS: BLOOD SUGAR DIAGNOSTIC 1 EACH STRIP VI SCH ×4 (06:12→21:12)
[2022-06-27 06:15] LABS: CALCIUM, SERUM 7.9 mg/dL (8.5-10.1); CARBON DIOXIDE 20 mmol/L (21-32); CHLORIDE 104 mmol/L (98-107); GLUCOSE 197 mg/dL (74-106); MAGNESIUM 2.9 mg/dL (1.8-2.4); PHOSPHORUS 6.2 mg/dL (2.5-4.9); POTASSIUM 5.3 mmol/L (3.5-5.1); SODIUM SERUM 135 mmol/L (136-145)
[2022-06-27] MEDS: INSULIN REGULAR, HUMAN 100 UNIT/ML 3 ML VIAL SQ PRN (06:16)
[2022-06-27 06:21] LABS: UREA NITROGEN, BLOOD 94 mg/dL (7-18)
--- NOTE | 2022-06-27 07:10 | NUR ---
EPIC APPLICATION COORDINATOR CLOSING NOTE PATIENT IN BED; AWAKE, A/O X 2. STABLE ON ROOM AIR. BREATHING EQUAL AND UNLABORED. IN NO APPARENT DISTRESS. DENIES ANY PAIN OR DISCOMFORT AT THIS TIME. ON TELEMETRY MONITORING WHICH READS SINUS BRADYCARDIA WITH BBB HR-48 BPM. SAFETY PRECAUTIONS MAINTAINED: CALL LIGHT AND TABLE WITHIN REACH, SIDE RAILS UP X 3, BED IN LOWEST LOCKED POSITION. ENDORSED TO MORNING SHIFT FOR JAX.
[2022-06-27] MEDS ORDERED: TICAGRELOR 90 MG TABLET PO SCH (09:00)
[2022-06-27] MEDS ORDERED: FERROUS SULFATE (325 MG) 325 MG/TAB TABLET PO SCH (09:00)
[2022-06-27] MEDS ORDERED: MECLIZINE HCL 25 MG TABLET PO SCH (09:00)
[2022-06-27] MEDS: DOXAZOSIN MESYLATE (1 MG) 1 MG TABLET PO SCH (09:00)
[2022-06-27] MEDS ORDERED: ALPRAZOLAM 0.5 MG TABLET PO SCH (09:00)
[2022-06-27] MEDS: hydrALAZINE HCL 50 MG TABLET PO SCH ×3 (09:00→17:00)
[2022-06-27] MEDS ORDERED: CARVEDILOL 12.5 MG TABLET PO SCH (09:00)
[2022-06-27] MEDS ORDERED: Medication Not On Formulary EA (Icosapent Ethyl (Vascepa) 2 GM) PO SCH (09:00)
[2022-06-27] MEDS: AMLODIPINE BESYLATE 10 MG TABLET PO SCH (09:00)
[2022-06-27] MEDS: PANTOPRAZOLE 40 MG TABLET.DR PO SCH (10:47)
[2022-06-27] MEDS: LEVOTHYROXINE SODIUM 100 MCG TABLET PO SCH (10:47)
[2022-06-27] MEDS: GLIMEPIRIDE 4 MG TABLET PO SCH ×2 (10:48→16:30)
[2022-06-27] MEDS: GABAPENTIN 300 MG CAPSULE PO SCH ×3 (10:55→19:25)
[2022-06-27] MEDS: ASCORBIC ACID 500 MG TABLET PO SCH (10:56)
[2022-06-27] MEDS: ASPIRIN EC 81 MG TABLET.DR PO SCH (10:56)
[2022-06-27] MEDS: RIVAROXABAN 10 MG TABLET PO SCH ×2 (11:10→19:27)
[2022-06-27] MEDS: *INSULIN REGULAR(HUMULIN R)HUM 100 UNIT/ML VIAL SQ PRN ×2 (11:55→21:16)
[2022-06-27] MEDS: OLOPATADINE HCL 0.1% OPHTH BOTTLE EACHEYE SCH ×3 (12:00→19:30)
--- NOTE | 2022-06-27 19:00 | NUR ---
MARKETING DEVELOPMENT SPECIALIST CLOSE NOTE REPORT GIVEN TO INCOMING NURSE. VITAL SIGNS STABLE. O2 2 LITER FOR COMFORT. PATIENT SAT AT 95%. PATIENT IS SEEN BY NEPHRO. NEW ORDERS GIVEN AND ENTERED IN THE COMPUTER. NO ACUTE DISTRESS NOTED.
--- NOTE | 2022-06-27 19:27 | NUR ---
FINANCIAL SERVICES SALES REPRESENTATIVE OPENING NOTE PATIENT IN BED; AWAKE, A/O X 2. STABLE ON ROOM AIR. BREATHING EQUAL AND UNLABORED. IN NO APPARENT DISTRESS. DENIES ANY PAIN OR DISCOMFORT AT THIS TIME. ON TELEMETRY MONITORING WHICH READS SINUS BRADYCARDIA WITH BBB HR-48 BPM. SAFETY PRECAUTIONS MAINTAINED: CALL LIGHT AND TABLE WITHIN REACH, SIDE RAILS UP X 3, BED IN LOWEST LOCKED POSITION. PT SEEN BY NEPHGINNY MCKNIGHT DR SPOKE WITH FAMILY PT AGREES TO HD AT THIS TIME.
[2022-06-27] MEDS: ATORVASTATIN 40 MG TABLET PO SCH (21:12)
--- NOTE | 2022-06-27 23:48 | NUR ---
RN NOTE BLADDER SCANNED PT PT ONLY HAS 56CC IN BLADDER. PT IS AMBULATING TO THE RESTROOM. IS NOT INCONTINENT.
[2022-06-28 05:59] LABS: BASOPHILS # (AUTO) 0.1 K/uL (0.0-0.2); BASOPHILS % (AUTO) 0.6 % (0.0-2.0); HEMATOCRIT 29 % (33-45); HEMOGLOBIN 9.4 g/dL (11.5-14.8); LYMPHOCYTES # (AUTO) 1.1 K/uL (0.8-4.8); LYMPHOCYTES % (AUTO) 12.1 % (20.0-44.0); MEAN CORPUSCULAR HGB CONC 32 g/dl (31.0-36.0); MEAN CORPUSCULAR VOLUME 86 fL (82-100); MONOCYTES # (AUTO) 0.8 K/uL (0.1-1.30); MONOCYTES % (AUTO) 9.1 % (2.0-12.0); NEUTROPHILS # (AUTO) 6.7 K/uL (1.8-8.9); NEUTROPHILS % (AUTO) 74.2 % (43.0-81.0); PLATELET COUNT (AUTO) 225 K/uL (150-450); RED BLOOD CELL COUNT(AUTO) 3.44 MIL/uL (4.0-5.2)
[2022-06-28] MEDS: LEVOTHYROXINE SODIUM 100 MCG TABLET PO SCH (06:17)
[2022-06-28 06:22] LABS: ALANINE AMINOTRANSFERASE 24 U/L (12-78); ALBUMIN 2.8 g/dL (3.4-5.0); ALKALINE PHOSPHATASE 70 U/L (46-116); ASPARTATE AMINOTRANSFERASE 16 U/L (15-37); BILIRUBIN,TOTAL 0.2 mg/dL (0.2-1.0); CALCIUM, SERUM 7.2 mg/dL (8.5-10.1); CARBON DIOXIDE 21 mmol/L (21-32); CHLORIDE 105 mmol/L (98-107); GLUCOSE 116 mg/dL (74-106); MAGNESIUM 2.8 mg/dL (1.8-2.4); PHOSPHORUS 6.2 mg/dL (2.5-4.9); POTASSIUM 4.7 mmol/L (3.5-5.1); SODIUM SERUM 134 mmol/L (136-145); TOTAL PROTEIN, SERUM 5.8 g/dL (6.4-8.2)
[2022-06-28 06:29] LABS: UREA NITROGEN, BLOOD 92 mg/dL (7-18)
[2022-06-28] MEDS: INSULIN REGULAR, HUMAN 100 UNIT/ML 3 ML VIAL SQ PRN (06:44)
[2022-06-28] MEDS: BLOOD SUGAR DIAGNOSTIC 1 EACH STRIP VI SCH ×4 (06:44→21:36)
--- NOTE | 2022-06-28 06:46 | NUR ---
DIRECTOR PRINT CLOSING NOTE PATIENT IN BED; AWAKE, A/O X 2 STABLE ON ROOM AIR. BREATHING EQUAL AND UNLABORED. IN NO APPARENT DISTRESS. DENIES ANY PAIN OR DISCOMFORT AT THIS TIME. ON TELEMETRY MONITORING WHICH READS SINUS BRADYCARDIA WITH BBB HR-51 BPM. SAFETY PRECAUTIONS MAINTAINED: CALL LIGHT AND TABLE WITHIN REACH, SIDE RAILS UP X 3, BED IN LOWEST LOCKED POSITION. WILL ENDORSE CARE TO DAY SHIFT NURSE.
[2022-06-28 08:00] VITALS: BP 125/56
[2022-06-28] MEDS: ASCORBIC ACID 500 MG TABLET PO SCH (09:04)
[2022-06-28] MEDS: DOXAZOSIN MESYLATE (1 MG) 1 MG TABLET PO SCH (09:04)
[2022-06-28] MEDS: AMLODIPINE BESYLATE 10 MG TABLET PO SCH (09:04)
[2022-06-28] MEDS: GLIMEPIRIDE 4 MG TABLET PO SCH ×2 (09:05→18:21)
[2022-06-28] MEDS: GABAPENTIN 300 MG CAPSULE PO SCH ×3 (09:05→18:21)
[2022-06-28] MEDS: PANTOPRAZOLE 40 MG TABLET.DR PO SCH (09:05)
[2022-06-28] MEDS: RIVAROXABAN 10 MG TABLET PO SCH ×2 (09:07→18:22)
[2022-06-28] MEDS: ASPIRIN EC 81 MG TABLET.DR PO SCH (09:10)
[2022-06-28] MEDS: OLOPATADINE HCL 0.1% OPHTH BOTTLE EACHEYE SCH ×3 (09:13→18:25)
[2022-06-28] MEDS: MAGNESIUM HYDROXIDE 30 ML UDC PO PRN (09:17)
[2022-06-28 12:00] VITALS: BP 120/45
[2022-06-28] MEDS: *INSULIN REGULAR(HUMULIN R)HUM 100 UNIT/ML VIAL SQ PRN ×2 (12:30→21:41)
[2022-06-28] MEDS: FUROSEMIDE 20 MG/2 ML VIAL IV SCH (14:44)
[2022-06-28 16:00] VITALS: BP 124/56
--- NOTE | 2022-06-28 19:15 | NUR ---
RN opening notes Received Pt from morning nurse. Pt is sitting in bed comfortably watching TV. Pt is alert and orientedX3. On 3 L NC. No SOB. no S/S of distress noted. tele monitor showed S.scar with bbb hr at 57. IV site at L hand# 20 is clean, intact and flushes well. Safety precautions is maintained. bed at low position, brakes locked, side rails upX3, hob elevated and call light is within reach. Will continue to monitor.
--- NOTE | 2022-06-28 19:41 | NUR ---
RN notes MD ordered for rea cath. Pt refuses rea cath insertion. explained risks and benefits. Pt keep refusing. Pt is able to go to bathroom with assist. Will continue to monitor.
[2022-06-28 20:00] VITALS: BP 124/52
--- NOTE | 2022-06-28 20:00 | NUR ---
RN notes Pt is complaining of mild pain on R leg and requesting tylenol. administered tylenol 650 mg/po/prn as ordered. will continue to monitor.
--- NOTE | 2022-06-28 21:13 | NUR ---
RN notes Pt is feeling anxious and requesting ativan. Notify and informed Dr. Keh. MCGHEE ordered ativan 0.5 mg/po/Q 6hr/prn as ordered. order carry out.
[2022-06-28] MEDS: ATORVASTATIN 40 MG TABLET PO SCH (21:16)
[2022-06-28] MEDS ORDERED: LORAZEPAM 0.5 MG TABLET PO PRN (21:30)
[2022-06-28] MEDS ORDERED: HYDROCODONE/APAP 10/325MG TABLET PO PRN (23:30)
--- NOTE | 2022-06-28 23:40 | NUR ---
RN notes Pt is complaining of pain and requesting pain med. Informed and notify Dr. Flores. ordered norco 10/Q 6hr/po/prn. Order carry out.
[2022-06-29] VITALS: BP 111/40
--- NOTE | 2022-06-29 00:16 | NUR ---
RN notes Pt is complaining of pain on R thigh and requesting pain med. adminsistered norco 10/1 tab/po/prn as ordered for pain. safety precautions is maintained. will continue to monitor.
[2022-06-29 04:00] VITALS: BP 112/50
[2022-06-29 06:25] LABS: CARBON DIOXIDE 20 mmol/L (21-32); CHLORIDE 105 mmol/L (98-107); CREATININE 3.9 mg/dL (0.6-1.3); GLUCOSE 145 mg/dL (74-106); POTASSIUM 5.2 mmol/L (3.5-5.1); SODIUM SERUM 136 mmol/L (136-145)
[2022-06-29] MEDS: BLOOD SUGAR DIAGNOSTIC 1 EACH STRIP VI SCH ×4 (06:33→22:18)
[2022-06-29] MEDS: INSULIN REGULAR, HUMAN 100 UNIT/ML 3 ML VIAL SQ PRN (06:54)
[2022-06-29] MEDS: LEVOTHYROXINE SODIUM 100 MCG TABLET PO SCH (07:07)
[2022-06-29] MEDS: GLIMEPIRIDE 4 MG TABLET PO SCH ×2 (07:07→17:00)
[2022-06-29] MEDS: PANTOPRAZOLE 40 MG TABLET.DR PO SCH (07:07)
[2022-06-29 07:31] LABS: UREA NITROGEN, BLOOD 95 mg/dL (7-18)
--- NOTE | 2022-06-29 07:35 | NUR ---
RN notes Pt's BUN is 95. Dr. Layton is aware and informed.
--- NOTE | 2022-06-29 07:39 | NUR ---
RN notes Informed and notified Dr. Layton regarding Pt's potassium 5.2. MD ordered kayexalate 20 g/po/one time. Order carry out.
[2022-06-29 08:00] VITALS: BP 113/39
[2022-06-29] MEDS ORDERED: SODIUM POLYSTYRENE SULFONATE 15 G/60 ML BOTTLE PO ONE (08:00)
[2022-06-29] MEDS: ASCORBIC ACID 500 MG TABLET PO SCH (08:47)
[2022-06-29] MEDS: GABAPENTIN 300 MG CAPSULE PO SCH ×3 (08:47→16:59)
[2022-06-29] MEDS: RIVAROXABAN 10 MG TABLET PO SCH ×2 (08:48→16:52)
[2022-06-29] MEDS: ASPIRIN EC 81 MG TABLET.DR PO SCH (08:48)
[2022-06-29] MEDS: DOXAZOSIN MESYLATE (1 MG) 1 MG TABLET PO SCH (08:49)
[2022-06-29] MEDS: FUROSEMIDE 20 MG/2 ML VIAL IV SCH (08:49)
[2022-06-29] MEDS: OLOPATADINE HCL 0.1% OPHTH BOTTLE EACHEYE SCH ×3 (08:52→17:00)
[2022-06-29] MEDS: ERGOCALCIFEROL (VITAMIN D 2) 50,000 UNIT CAPSULE PO SCH (08:53)
--- NOTE | 2022-06-29 11:32 | NUR ---
RN closing notes Pt is resting in bed comfortably. Pt is alert and orientedX3. On 3 L NC. No SOB. no S/S of distress noted. tele monitor showed S.scar with bbb hr at 46. IV site at L hand# 20 is clean, intact and flushes well. Routine meds were given as ordered. Kept Pt clean, dry and comfortable. Safety precautions is maintained. bed at low position, brakes locked, side rails upX3, hob elevated and call light is within reach. Will endorse to am nurse for JAX.
[2022-06-29 12:00] VITALS: BP 122/51
[2022-06-29] MEDS: *INSULIN REGULAR(HUMULIN R)HUM 100 UNIT/ML VIAL SQ PRN ×2 (14:14→22:18)
[2022-06-29] MEDS ORDERED: LACTULOSE 10 G/15 ML UDC (PYXIS) PO ONE (15:00)
[2022-06-29 16:00] VITALS: BP 122/50
[2022-06-29] MEDS: TICAGRELOR 90 MG TABLET PO SCH (17:00)
--- NOTE | 2022-06-29 19:36 | NUR ---
RN OPENING NOTES RECEIVED PT IN BED, ASLEEP, AWAKENS TO VERBAL STIMULI. AOx2-3, ABLE TO MAKE NEEDS KNOWN. ON NC 3LPM AND TOLERATING WELL. NO SOB NOTED. NO S/SX OF RESPIRATORY DISTRESS NOTED. TELE MONITOR DETECTS SINUS BRADYCARDIA WITH 1ST DEGREE AV BLOCK. IV ACCESS IN L HAND #20G. IV IS INTACT, PATENT, AND FLUSHING WELL. SAFETY PRECAUTIONS IN PLACE: BED IN LOWEST, LOCKED POSITION, SIDERAILS UPx2, AND BRAKES ON. TABLE AND CALL LIGHT WITHIN REACH. ALL NEEDS MET AT THIS TIME.
--- NOTE | 2022-06-29 20:01 | NUR ---
RN NOTES DR. MCKNIGHT AT BEDSIDE. SPEAKING WITH FAMILY AND PATIENT. ORDERED ONE STAT DOSE OF LASIX 40 MG IV AND CHEST X-RAY 06/30 0600.
[2022-06-29] MEDS ORDERED: FUROSEMIDE 100 MG/10 ML VIAL IV ONE (20:30)
[2022-06-29] MEDS: ATORVASTATIN 40 MG TABLET PO SCH (22:02)
[2022-06-29] MEDS: MAGNESIUM HYDROXIDE 30 ML UDC PO PRN (22:02)
--- NOTE | 2022-06-29 22:05 | NUR ---
RN NOTES SPOKE TO DAUGHTER LLUVIA, GAVE UPDATE AND ANSWERED ALL QUESTIONS TO SATISFACTION.
[2022-06-30 06:28] LABS: CALCIUM, SERUM 7.3 mg/dL (8.5-10.1); CARBON DIOXIDE 24 mmol/L (21-32); CHLORIDE 106 mmol/L (98-107); CREATININE 3.5 mg/dL (0.6-1.3); GLUCOSE 115 mg/dL (74-106); POTASSIUM 3.5 mmol/L (3.5-5.1); SODIUM SERUM 142 mmol/L (136-145)
[2022-06-30 06:32] LABS: UREA NITROGEN, BLOOD 95 mg/dL (7-18)
[2022-06-30] MEDS: BLOOD SUGAR DIAGNOSTIC 1 EACH STRIP VI SCH ×4 (06:54→22:30)
[2022-06-30] MEDS: *INSULIN REGULAR(HUMULIN R)HUM 100 UNIT/ML VIAL SQ PRN (06:55)
--- NOTE | 2022-06-30 07:00 | NUR ---
RN CLOSING NOTES PT IN BED, ASLEEP, AWAKENS TO VERBAL STIMULI. AOx2-3, ABLE TO MAKE NEEDS KNOWN. ON NC 3LPM AND TOLERATING WELL. NO SOB NOTED. NO S/SX OF RESPIRATORY DISTRESS NOTED. TELE MONITOR DETECTS SINUS BRADYCARDIA WITH BBB. IV ACCESS IN L HAND #20G. IV IS INTACT, PATENT, AND FLUSHING WELL.ALL ORDERS CARRIED OUT. ALL NEEDS MET. PT KEPT CLEAN AND DRY. SAFETY PRECAUTIONS IN PLACE: BED IN LOWEST, LOCKED POSITION, SIDERAILS UPx2, AND BRAKES ON. TABLE AND CALL LIGHT WITHIN REACH. WILL ENDORSE TO ONCOMING SHIFT FOR JAX.
[2022-06-30] MEDS: GLIMEPIRIDE 4 MG TABLET PO SCH ×2 (07:02→16:39)
[2022-06-30] MEDS: LEVOTHYROXINE SODIUM 100 MCG TABLET PO SCH (07:02)
[2022-06-30] MEDS: PANTOPRAZOLE 40 MG TABLET.DR PO SCH (07:03)
--- NOTE | 2022-06-30 07:09 | NUR ---
MOTOR VEHICLE OR CARAVAN SALESPERSON OPENING NOTES RECEIVED PT AWAKE IN NO ACUTE SIGNS OF DISTRESS. A/0 x 2-3, ABLE TO MAKE NEEDS KNOWN, DENIES PAIN OR ANY DISCOMFORTS AT THIS TIME. ON SUPPLEMENTAL 02 VIA N/C @ 3LPM, TOLERATING WELL, NO SOB NOTED. TELE- MONIT SHOWS SB WITH BBB'S AND HR 56 AT THIS TIME, NO C/O CARDIAC DISTRESS VOICED AT THIS TIME. IV ACCESS IN L HAND #20G INTACT, PATENT, AND FLUSHING WELL. SAFETY PRECAUTIONS IN PLACE: BED IN LOWEST LOCKED POSITION, SIDE-RAILS UPx2, BED ALARM ON TRAY TABLE AND CALL LIGHT WITHIN REACH. WILL CONTINUE TO MONITOR PT ACCORDINGLY.
[2022-06-30 08:00] VITALS: BP 118/54
[2022-06-30] MEDS: OLOPATADINE HCL 0.1% OPHTH BOTTLE EACHEYE SCH ×3 (08:22→16:39)
[2022-06-30] MEDS: TICAGRELOR 90 MG TABLET PO SCH ×2 (08:22→16:39)
[2022-06-30] MEDS: GABAPENTIN 300 MG CAPSULE PO SCH ×3 (08:23→16:39)
[2022-06-30] MEDS: ASPIRIN EC 81 MG TABLET.DR PO SCH (08:23)
[2022-06-30] MEDS: ASCORBIC ACID 500 MG TABLET PO SCH (08:23)
[2022-06-30] MEDS: RIVAROXABAN 10 MG TABLET PO SCH ×2 (08:25→16:40)
[2022-06-30] MEDS: DOXAZOSIN MESYLATE (1 MG) 1 MG TABLET PO SCH (08:27)
[2022-06-30] MEDS: INSULIN REGULAR, HUMAN 100 UNIT/ML 3 ML VIAL SQ PRN ×2 (11:45→22:33)
[2022-06-30 12:00] VITALS: BP 115/48
[2022-06-30 16:00] VITALS: BP 123/61
[2022-06-30] MEDS: IV 1/2NS 1000 ML 1,000 ML IV PRN (16:18)
--- NOTE | 2022-06-30 18:45 | NUR ---
REVIEW ENGINEER CLOSING NOTES PT IN BED AWAKE WITH FAMILY AT BEDSIDE. A/0 x 3, ABLE TO MAKE NEEDS KNOWN, SPEAKS MOSTLY SPANISH AND UNDERSTANDS FAROESE. ON SUPPLEMENTAL 02 VIA N/C @ 2LPM AT THIS TIME, TOLERATING WELL, NO SOB NOTED. TELE- MONITOR WITH CURRENT READING OF SB WITH BBB'S , HR 58, NO C/O CARDIAC DISTRESS VOICED DURING SHIFT. IV ACCESS IN L HAND #20G INTACT, PATENT, AND FLUSHING WELL. ALL NEEDS AND CARE ATTENDED WELL. SAFETY PRECAUTIONS IN PLACE: BED IN LOWEST LOCKED POSITION, SIDE-RAILS UPx2, BED ALARM ON, TRAY TABLE AND CALL LIGHT WITHIN REACH OF PT. WILL CONTINUE TO MONITOR PT ACCORDINGLY.
--- NOTE | 2022-06-30 19:30 | NUR ---
TELERN FULLY AWAKE, FAMILY LEFT. PATIENT FOR CT CHEST TONIGHT ORDERED. WILL FOLLOW UP. PATIENT A/O X3 ESTONIAN SPEAKING LIMITED MOHAWK. NO SOB. NO NEEDS FOR NOW. REMINDED TO CALL STAFF FOR ANY ASSISTANCE OR DISCOMFORTS CALL LIGHT USE REVIEWED WITH PATIENT WELL UNDERSTOOD. BSC AT BEDSIDE. SAFETY PRECAUTIONS OBSERVED. SB ON THE MONITOR. CONTINUED MONITORING. CLOSELY WATCHED.
[2022-06-30 20:00] VITALS: BP 108/48
--- NOTE | 2022-06-30 21:15 | NUR ---
TELERN REPOSITIONED FOR PATIENTS COMFORT,WENT BACK TO SLEEP.
[2022-06-30] MEDS: ATORVASTATIN 40 MG TABLET PO SCH (21:41)
--- NOTE | 2022-06-30 23:45 | NUR ---
TELERN REMAINS SB ON THE MONITOR. ASSISTED TO BSC VOIDED FREELY.ALL NEEDS ATTENDED, CONTINUED MONITORING
[2022-07-01] VITALS (7 sets, daily range): BP systolic 111–148; BP diastolic 50–72
--- NOTE | 2022-07-01 02:09 | NUR ---
TELERN FELT COLD, WANTED WARM BLANKET PROVIDED. REPOSITIONED PER PATIENTS COMFORT.WENT BACK TO SLEEP
[2022-07-01] MEDS: MAGNESIUM HYDROXIDE 30 ML UDC PO PRN ×2 (04:05→20:04)
--- NOTE | 2022-07-01 04:07 | NUR ---
TELERN AWAKE AT THIS TIME, ASKED FOR MOM , STATED NO BM FOR 5 DAYS. MED ADMINISTERED. REMINDED TO CALL STAFF FOR ASSISTANCE AND FURTHER DISCOMFORTS. CALL LIGHT WITHIN REACH.
[2022-07-01 06:07] LABS: CALCIUM, SERUM 7.5 mg/dL (8.5-10.1); CARBON DIOXIDE 26 mmol/L (21-32); CHLORIDE 107 mmol/L (98-107); CREATININE 3.2 mg/dL (0.6-1.3); GLUCOSE 165 mg/dL (74-106); SODIUM SERUM 141 mmol/L (136-145)
[2022-07-01 06:39] LABS: UREA NITROGEN, BLOOD 93 mg/dL (7-18)
[2022-07-01] MEDS: BLOOD SUGAR DIAGNOSTIC 1 EACH STRIP VI SCH ×4 (06:45→21:26)
[2022-07-01] MEDS: INSULIN REGULAR, HUMAN 100 UNIT/ML 3 ML VIAL SQ PRN ×2 (06:48→12:00)
--- NOTE | 2022-07-01 07:00 | NUR ---
TELERN EASILY AWAKENED WHEN CALLED. BS CHECKED WITH INSULIN COVERAGE. KEPT COMFORTABLE.
[2022-07-01] MEDS: LEVOTHYROXINE SODIUM 100 MCG TABLET PO SCH (07:03)
--- NOTE | 2022-07-01 07:30 | NUR ---
INFECTIOUS DISEASE PHYSICIAN NOTES PT IN BED, ASLEEP, EASY TO AROUSE, ALERT AND VERBALLY RESPONSIVE, DENIES PAIN, NOT IN DISTRESS, CALL LIGHT WITHIN REACH, KEPT WARM AND COMFORTABLE IN BED, ASSISTED WITH BREAKFAST, ASSISTED TO BEDSIDE COMMODE, PT WALKED ALONG THE HALLWAY WITH A WALKER WITH MINIMAL ASSISTANCE THEN WENT BACK TO BED.
[2022-07-01] MEDS: OLOPATADINE HCL 0.1% OPHTH BOTTLE EACHEYE SCH ×3 (08:16→17:05)
[2022-07-01] MEDS: PANTOPRAZOLE 40 MG TABLET.DR PO SCH (08:17)
[2022-07-01] MEDS: GABAPENTIN 300 MG CAPSULE PO SCH ×3 (08:17→16:52)
[2022-07-01] MEDS: ASPIRIN EC 81 MG TABLET.DR PO SCH (08:17)
[2022-07-01] MEDS: ASCORBIC ACID 500 MG TABLET PO SCH (08:17)
[2022-07-01] MEDS: GLIMEPIRIDE 4 MG TABLET PO SCH ×2 (08:17→16:52)
[2022-07-01] MEDS: DOXAZOSIN MESYLATE (1 MG) 1 MG TABLET PO SCH (08:30)
[2022-07-01] MEDS: RIVAROXABAN 10 MG TABLET PO SCH ×2 (08:31→16:58)
--- NOTE | 2022-07-01 11:18 | NUR ---
CENTER MANAGER NOTES PT SEEN AND EXAMINED BY DR. THORNE, PLAN OF CARE DISCUSSED WITH FAMILY AT BEDSIDE AND OVER THE PHONE, VERBALIZED UNDERSTANDING, PT COMPLETED CT CHEST, TOLERATED PHYSICAL THERAPY, ABLE TO WALK WITH A WALKER, NEEDS ATTENDED.
[2022-07-01] MEDS: BISACODYL SUPP (10 MG) 10 MG/SUPP.RECT SUPP.RECT RC PRN (13:38)
[2022-07-01] MEDS ORDERED: FUROSEMIDE 20 MG TABLET PO SCH (14:30)
[2022-07-01] MEDS: FUROSEMIDE 20 MG/2 ML VIAL IV SCH ×2 (14:50→16:57)
--- NOTE | 2022-07-01 14:51 | NUR ---
TITLE I INSTRUCTIONAL ASSISTANT NOTES PT COMPLAINING OF NOT HAVING A BM FOR 5 DAYS NOW, DR. THORNE AWARE, DULCOLAX SUPPOSITORY GIVEN, PT HAD ONE LARGE BM WITH REGULAR COLOR, CONSISTENCY AND ODOR.
--- NOTE | 2022-07-01 18:18 | NUR ---
TEACHER NURSERY SCHOOL NOTES PT IN BED, AWAKE, ALERT AND ORIENTED, NO COMPLAINT OF PAIN OR ANY DISCOMFORT, NOT IN DISTRESS, ASSISTED TO BATHROOM NEEDED, COMPLETED CT CHEST AND CT HEAD WITHOUT CONTRAST, PT ABLE TO TRANSFER FROM BED TO BATHROOM WITH A WALKER WITH MINIMUM ASSISTANCE, ABLE TO EAT WITH MINIMAL ASSISTANCE, SEEN BY DR. BOWDEN, PM CARE PROVIDED, ALL NEEDS ATTENDED.
--- NOTE | 2022-07-01 19:35 | NUR ---
TELERN HALFLY ASLEEP, EASILY AWAKENED WHEN CALLED. DAUGHTER AT BEDSIDE. EDUCATE BOTH PATIENT AND DAUGHTER USE OF INCENTIVE SPIROMETRY PATIENT FALLING ASLEEP. DAUGHTER TO EXPLAIN IN THEIR LANGUAGE INSTRUCTIONS HOW TO USE IS IN AM INSTEAD. NO OTHER NEEDS MADE. CONTINUED MONITORING. SB ON THE MONITOR.
[2022-07-01] MEDS: ATORVASTATIN 40 MG TABLET PO SCH (21:26)
--- NOTE | 2022-07-01 22:05 | NUR ---
TELERN HS CARE ASSISTED, COOPERATIVE. DUE MEDS ADMINISTERED. BS WAS 208 COVERED WITH REGULAR INSULIN PER SLIDING SCALE.SNACKS PROVIDED BY FAMILY. REPOSITIONED PER PATIENTS COMFORT.
[2022-07-01] MEDS: *INSULIN REGULAR(HUMULIN R)HUM 100 UNIT/ML VIAL SQ PRN (23:05)
[2022-07-02 00:11] VITALS: BP 123/57
[2022-07-02 00:13] VITALS: BP 123/57
[2022-07-02 06:00] LABS: BASOPHILS % (AUTO) 0.7 % (0.0-2.0); EOSINOPHILS % (AUTO) 4.3 % (0.0-6.0); HEMATOCRIT 27 % (33-45); HEMOGLOBIN 8.7 g/dL (11.5-14.8); LYMPHOCYTES # (AUTO) 0.9 K/uL (0.8-4.8); LYMPHOCYTES % (AUTO) 11.4 % (20.0-44.0); MEAN CORPUSCULAR HGB CONC 32 g/dl (31.0-36.0); MEAN CORPUSCULAR VOLUME 86 fL (82-100); MONOCYTES # (AUTO) 0.9 K/uL (0.1-1.30); MONOCYTES % (AUTO) 11.4 % (2.0-12.0); NEUTROPHILS # (AUTO) 5.5 K/uL (1.8-8.9); NEUTROPHILS % (AUTO) 72.2 % (43.0-81.0); PLATELET COUNT (AUTO) 212 K/uL (150-450); RED BLOOD CELL COUNT(AUTO) 3.19 MIL/uL (4.0-5.2); WHITE BLOOD COUNT (AUTO) 7.6 K/uL (4.3-11.0)
[2022-07-02] MEDS: LEVOTHYROXINE SODIUM 100 MCG TABLET PO SCH (06:09)
[2022-07-02 06:40] LABS: ALANINE AMINOTRANSFERASE 23 U/L (12-78); ALBUMIN 2.5 g/dL (3.4-5.0); ALKALINE PHOSPHATASE 72 U/L (46-116); ASPARTATE AMINOTRANSFERASE 17 U/L (15-37); BILIRUBIN,TOTAL 0.2 mg/dL (0.2-1.0); CALCIUM, SERUM 7.1 mg/dL (8.5-10.1); CARBON DIOXIDE 27 mmol/L (21-32); CHLORIDE 107 mmol/L (98-107); GLUCOSE 149 mg/dL (74-106); POTASSIUM 4.4 mmol/L (3.5-5.1); SODIUM SERUM 138 mmol/L (136-145); TOTAL PROTEIN, SERUM 5.5 g/dL (6.4-8.2)
[2022-07-02 06:45] LABS: UREA NITROGEN, BLOOD 85 mg/dL (7-18)
[2022-07-02] MEDS: BLOOD SUGAR DIAGNOSTIC 1 EACH STRIP VI SCH ×4 (06:50→22:01)
--- NOTE | 2022-07-02 07:00 | NUR ---
TELERN SLEPT ALL NIGHT. GOT OOB ONCE ASSISTED TO BSC VOIDED FREELY,DUE MED ADMINISTERED. BS 132 NO SOB STABLE. ENDORSED TO INCOMING RN
[2022-07-02 08:00] VITALS: BP 116/49
[2022-07-02] MEDS: PANTOPRAZOLE 40 MG TABLET.DR PO SCH (10:16)
[2022-07-02] MEDS: GLIMEPIRIDE 4 MG TABLET PO SCH ×2 (10:16→16:40)
[2022-07-02] MEDS: GABAPENTIN 300 MG CAPSULE PO SCH ×3 (10:17→16:40)
[2022-07-02] MEDS: ASPIRIN EC 81 MG TABLET.DR PO SCH (10:17)
[2022-07-02] MEDS: FUROSEMIDE 20 MG/2 ML VIAL IV SCH ×2 (10:17→16:40)
[2022-07-02] MEDS: ASCORBIC ACID 500 MG TABLET PO SCH (10:17)
[2022-07-02] MEDS: RIVAROXABAN 10 MG TABLET PO SCH ×2 (10:19→16:44)
[2022-07-02] MEDS: DOXAZOSIN MESYLATE (1 MG) 1 MG TABLET PO SCH (10:19)
[2022-07-02] MEDS: OLOPATADINE HCL 0.1% OPHTH BOTTLE EACHEYE SCH ×3 (10:30→16:41)
--- NOTE | 2022-07-02 19:30 | NUR ---
ICT HELP DESK TECHNICIAN OPENING NOTES RECEIVED PT AWAKE IN BED. FAMILY AT BED SIDE.NO ACUTE SIGNS OF DISTRESS NOTED. PATIENT IS A/0 x 2-3, ABLE TO MAKE NEEDS KNOWN, DENIES PAIN OR ANY DISCOMFORTS AT THIS TIME. ON 02 VIA N/C @ 3LPM, TOLERATING WELL, NO SOB NOTED. ON TELE MONITOR READING HR 60 AT THIS TIME. IV ACCESS IN L HAND #20G INTACT, PATENT, AND FLUSHING WELL. SAFETY PRECAUTIONS IN PLACE: BED IN LOWEST LOCKED POSITION, SIDE-RAILS UPx2, BED ALARM ON TRAY TABLE AND CALL LIGHT WITHIN REACH. WILL CONTINUE TO MONITOR PATIENT CLOSELY.
[2022-07-02] MEDS: BISACODYL SUPP (10 MG) 10 MG/SUPP.RECT SUPP.RECT RC PRN (19:50)
[2022-07-02 20:45] VITALS: BP 115/44
[2022-07-02] MEDS: ATORVASTATIN 40 MG TABLET PO SCH (21:51)
[2022-07-02] MEDS: *INSULIN REGULAR(HUMULIN R)HUM 100 UNIT/ML VIAL SQ PRN (22:04)
[2022-07-03] VITALS (7 sets, daily range): BP systolic 116–141; BP diastolic 53–83
[2022-07-03] MEDS: LEVOTHYROXINE SODIUM 100 MCG TABLET PO SCH (06:03)
[2022-07-03 06:23] LABS: BASOPHILS % (AUTO) 0.5 % (0.0-2.0); EOSINOPHILS % (AUTO) 4.7 % (0.0-6.0); HEMATOCRIT 27 % (33-45); HEMOGLOBIN 8.4 g/dL (11.5-14.8); LYMPHOCYTES # (AUTO) 0.9 K/uL (0.8-4.8); LYMPHOCYTES % (AUTO) 13.2 % (20.0-44.0); MEAN CORPUSCULAR HGB CONC 32 g/dl (31.0-36.0); MEAN CORPUSCULAR VOLUME 85 fL (82-100); MONOCYTES # (AUTO) 0.7 K/uL (0.1-1.30); MONOCYTES % (AUTO) 10.7 % (2.0-12.0); NEUTROPHILS # (AUTO) 4.9 K/uL (1.8-8.9); NEUTROPHILS % (AUTO) 70.9 % (43.0-81.0); PLATELET COUNT (AUTO) 199 K/uL (150-450); RED BLOOD CELL COUNT(AUTO) 3.12 MIL/uL (4.0-5.2); WHITE BLOOD COUNT (AUTO) 6.9 K/uL (4.3-11.0)
[2022-07-03] MEDS: BLOOD SUGAR DIAGNOSTIC 1 EACH STRIP VI SCH ×4 (06:25→22:56)
[2022-07-03] MEDS: INSULIN REGULAR, HUMAN 100 UNIT/ML 3 ML VIAL SQ PRN ×3 (06:27→16:46)
[2022-07-03 06:31] LABS: ALANINE AMINOTRANSFERASE 20 U/L (12-78); ALBUMIN 2.5 g/dL (3.4-5.0); ALKALINE PHOSPHATASE 64 U/L (46-116); ASPARTATE AMINOTRANSFERASE 19 U/L (15-37); BILIRUBIN,TOTAL 0.2 mg/dL (0.2-1.0); CALCIUM, SERUM 7.1 mg/dL (8.5-10.1); CARBON DIOXIDE 27 mmol/L (21-32); CHLORIDE 108 mmol/L (98-107); CREATININE 2.9 mg/dL (0.6-1.3); GLUCOSE 167 mg/dL (74-106); POTASSIUM 4.2 mmol/L (3.5-5.1); SODIUM SERUM 140 mmol/L (136-145); TOTAL PROTEIN, SERUM 5.5 g/dL (6.4-8.2); UREA NITROGEN, BLOOD 78 mg/dL (7-18)
--- NOTE | 2022-07-03 06:36 | NUR ---
BOILER CONTROL ROOM OPERATOR CLOSING NOTES PT AWAKE IN BED.NO ACUTE SIGNS OF DISTRESS NOTED. PATIENT IS A/0 x 2-3, ABLE TO MAKE NEEDS KNOWN, DENIES PAIN OR ANY DISCOMFORTS AT THIS TIME. ON 02 VIA N/C @ 2LPM, TOLERATING WELL, NO SOB NOTED. ON TELE MONITOR READING SB 54 WITH BBB AT THIS TIME. IV ACCESS IN L HAND #20G INTACT, PATENT, AND FLUSHING WELL. ALL DUE MEDS GIVEN ORDERED. PATIENT REQUESTED SUPPOSITORY AT NIGHT. SHE HAD 2 BOWEL MOVEMENTS. ALL SAFETY PRECAUTIONS IN PLACE: BED IN LOWEST LOCKED POSITION, SIDE-RAILS UPx2, BED ALARM ON TRAY TABLE AND CALL LIGHT WITHIN REACH. WILL ENDORSE FOR JAX.
[2022-07-03] MEDS: OLOPATADINE HCL 0.1% OPHTH BOTTLE EACHEYE SCH ×3 (08:12→16:36)
[2022-07-03] MEDS: PANTOPRAZOLE 40 MG TABLET.DR PO SCH (08:13)
[2022-07-03] MEDS: FUROSEMIDE 20 MG/2 ML VIAL IV SCH ×2 (08:13→16:35)
[2022-07-03] MEDS: GABAPENTIN 300 MG CAPSULE PO SCH ×3 (08:13→16:34)
[2022-07-03] MEDS: GLIMEPIRIDE 4 MG TABLET PO SCH ×2 (08:13→16:34)
[2022-07-03] MEDS: ASCORBIC ACID 500 MG TABLET PO SCH (08:13)
[2022-07-03] MEDS: ASPIRIN EC 81 MG TABLET.DR PO SCH (08:15)
[2022-07-03] MEDS: RIVAROXABAN 10 MG TABLET PO SCH ×2 (08:15→16:35)
[2022-07-03] MEDS: DOXAZOSIN MESYLATE (1 MG) 1 MG TABLET PO SCH (08:27)
[2022-07-03] MEDS: PAROXETINE HCL 20 MG TABLET PO SCH (12:46)
--- NOTE | 2022-07-03 18:30 | NUR ---
END OF SHIFT SUMMARY PATIENT IS A/O X4. WEANED PATIENT OFF OF OXYGEN, SATURATING ROOM AIR WELL. SINUS WOODY ON TELEMONITOR. AMBULATORY VIA WALKER WITH ASSIST. IV ACCESS ON L HAND #20G SL, INTACT AND PATENT. SAFTY MEASURES MAINTAINED. BED IN LOWEST POSITION, BRAKES LOCKED. SIDE RAILS UP X2. CALL LIGHT WITHIN REACH. WILL ENDORSE CONTINUITY OF CARE TO ONCOMING SHIFT.
--- NOTE | 2022-07-03 19:38 | NUR ---
RN OPENING NOTES RECEIVED PT IN BED, AWAKE, WATCHING TV. AOx3, ABLE TO MAKE NEEDS KNOWN. ON RA AND TOLERATING WELL. NO SOB NOTED. NO S/SX OF RESPIRATORY DISTRESS NOTED. TELE MONITOR DETECTS SINUS BRADYCARDIA. IV ACCESS IN L HAND #20G. IV IS INTACT, PATENT, AND FLUSHING WELL. SAFETY PRECAUTIONS IN PLACE: BED IN LOWEST, LOCKED POSITION, SIDERAILS UPx2, AND BRAKES ON. TABLE4 AND CALL LIGHT WITHIN REACH. ALL NEEDS MET AT THIS TIME.
[2022-07-03] MEDS: ATORVASTATIN 40 MG TABLET PO SCH (22:44)
[2022-07-03] MEDS: *INSULIN REGULAR(HUMULIN R)HUM 100 UNIT/ML VIAL SQ PRN (22:56)
[2022-07-04] VITALS: BP 125/51
[2022-07-04 04:00] VITALS: BP 123/54
[2022-07-04 05:46] LABS: BASOPHILS % (AUTO) 0.3 % (0.0-2.0); HEMATOCRIT 26 % (33-45); HEMOGLOBIN 8.1 g/dL (11.5-14.8); LYMPHOCYTES # (AUTO) 0.8 K/uL (0.8-4.8); LYMPHOCYTES % (AUTO) 12.4 % (20.0-44.0); MEAN CORPUSCULAR HGB CONC 31 g/dl (31.0-36.0); MEAN CORPUSCULAR VOLUME 85 fL (82-100); MONOCYTES # (AUTO) 0.7 K/uL (0.1-1.30); MONOCYTES % (AUTO) 10.7 % (2.0-12.0); NEUTROPHILS % (AUTO) 72.6 % (43.0-81.0); PLATELET COUNT (AUTO) 200 K/uL (150-450); RED BLOOD CELL COUNT(AUTO) 3.05 MIL/uL (4.0-5.2); WHITE BLOOD COUNT (AUTO) 6.9 K/uL (4.3-11.0)
[2022-07-04 06:19] LABS: ALANINE AMINOTRANSFERASE 21 U/L (12-78); ALBUMIN 2.5 g/dL (3.4-5.0); ALKALINE PHOSPHATASE 67 U/L (46-116); ASPARTATE AMINOTRANSFERASE 19 U/L (15-37); BILIRUBIN,TOTAL 0.3 mg/dL (0.2-1.0); CALCIUM, SERUM 7.3 mg/dL (8.5-10.1); CARBON DIOXIDE 27 mmol/L (21-32); CHLORIDE 106 mmol/L (98-107); CREATININE 2.7 mg/dL (0.6-1.3); GLUCOSE 162 mg/dL (74-106); POTASSIUM 4.5 mmol/L (3.5-5.1); SODIUM SERUM 140 mmol/L (136-145); TOTAL PROTEIN, SERUM 5.6 g/dL (6.4-8.2); UREA NITROGEN, BLOOD 71 mg/dL (7-18)
[2022-07-04] MEDS: BLOOD SUGAR DIAGNOSTIC 1 EACH STRIP VI SCH ×4 (06:52→22:00)
[2022-07-04] MEDS: INSULIN REGULAR, HUMAN 100 UNIT/ML 3 ML VIAL SQ PRN ×3 (06:54→17:09)
--- NOTE | 2022-07-04 07:24 | NUR ---
RN CLOSING NOTES PT IN BED, ASLEEP, AWAKENS TO VERBAL STIMULI. AOx3, ABLE TO MAKE NEEDS KNOWN. ON RA AND TOLERATING WELL. NO SOB NOTED. NO S/SX OF RESPIRATORY DISTRESS NOTED. TELE MONITOR DETECTS SINUS BRADYCARDIA WITH BBB AND PVCs. IV ACCESS IN L HAND #20G. IV IS INTACT, PATENT, AND FLUSHING WELL ALL ORDERS CARRIED OUT. ALL NEEDS MET. PT KEPT CLEAN AND DRY. SAFETY PRECAUTIONS IN PLACE: BED IN LOWEST, LOCKED POSITION, SIDERAILS UPx2, AND BRAKES ON. TABLE4 AND CALL LIGHT WITHIN REACH. WILL ENDORSE TO INCOMING SHIFT FOR JAX.
[2022-07-04] MEDS: PANTOPRAZOLE 40 MG TABLET.DR PO SCH (07:39)
[2022-07-04] MEDS: GLIMEPIRIDE 4 MG TABLET PO SCH ×2 (07:39→17:05)
[2022-07-04] MEDS: LEVOTHYROXINE SODIUM 100 MCG TABLET PO SCH (07:39)
[2022-07-04] MEDS ORDERED: PARO20TA7 PO (07:48)
[2022-07-04] MEDS ORDERED: FURO40TA5 PO (07:48)
[2022-07-04 08:00] VITALS: BP 127/51
[2022-07-04] MEDS: OLOPATADINE HCL 0.1% OPHTH BOTTLE EACHEYE SCH ×3 (08:20→17:06)
[2022-07-04] MEDS: FUROSEMIDE 20 MG/2 ML VIAL IV SCH ×2 (08:20→17:05)
[2022-07-04] MEDS: GABAPENTIN 300 MG CAPSULE PO SCH ×3 (08:20→17:05)
[2022-07-04] MEDS: PAROXETINE HCL 20 MG TABLET PO SCH (08:20)
[2022-07-04] MEDS: ASCORBIC ACID 500 MG TABLET PO SCH (08:20)
[2022-07-04] MEDS: ASPIRIN EC 81 MG TABLET.DR PO SCH (08:20)
[2022-07-04] MEDS: RIVAROXABAN 10 MG TABLET PO SCH ×2 (08:21→17:00)
[2022-07-04] MEDS: DOXAZOSIN MESYLATE (1 MG) 1 MG TABLET PO SCH (08:30)
--- NOTE | 2022-07-04 18:16 | NUR ---
END OF SHIFT SUMMARY PATIENT IS A/O X4. ON RA, SATURATING WELL. SINUS WOODY ON TELEMONITOR. AMBULATORY VIA WALKER WITH ASSIST. IV ACCESS ON L HAND #20G SL, INTACT AND PATENT. HELD ELIQUIS, PATIENT HAD NOSE BLEED. COLD COMPRESS APPLIED. SAFTY MEASURES MAINTAINED. BED IN LOWEST POSITION, BRAKES LOCKED. SIDE RAILS UP X2. CALL LIGHT WITHIN REACH. WILL ENDORSE CONTINUITY OF CARE TO ONCOMING SHIFT.
--- NOTE | 2022-07-04 19:33 | NUR ---
RN OPENING NOTES PT IN BED, ASLEEP, AWAKENS TO VERBAL STIMULI. AOx4. ON NC 2LPM AND TOLERATING WELL. NO SOB NOTED. NO S/SX OF RESPIRATORY DISTRESS NOTED. ON RA AND TOLERATING WELL. TELE MONITOR DETECTS SINUS BRADYCARDIA WITH BBB AND PVC. IV ACCESS IN L HAND#20G. IV IS INTACT, PATENT, AND FLUSHING WELL. SAFETY PRECAUTIONS IN PLACE: BED IN LOWEST, LOCKED POSITION, SIDERAILS UPx2, AND BRAKES ON. TABLE AND CALL LIGHT WITHIN REACH. ALL NEEDS MET AT THIS TIME.
[2022-07-04 20:00] VITALS: BP 126/46
[2022-07-04] MEDS: ATORVASTATIN 40 MG TABLET PO SCH (21:36)
[2022-07-04] MEDS: *INSULIN REGULAR(HUMULIN R)HUM 100 UNIT/ML VIAL SQ PRN (22:01)
[2022-07-05] VITALS: BP 136/88
[2022-07-05 04:00] VITALS: BP 146/65
[2022-07-05 05:48] LABS: BASOPHILS % (AUTO) 0.6 % (0.0-2.0); EOSINOPHILS % (AUTO) 5.3 % (0.0-6.0); HEMATOCRIT 26 % (33-45); HEMOGLOBIN 8.2 g/dL (11.5-14.8); LYMPHOCYTES # (AUTO) 0.9 K/uL (0.8-4.8); LYMPHOCYTES % (AUTO) 12.6 % (20.0-44.0); MEAN CORPUSCULAR HGB CONC 32 g/dl (31.0-36.0); MEAN CORPUSCULAR VOLUME 84 fL (82-100); MONOCYTES # (AUTO) 0.8 K/uL (0.1-1.30); MONOCYTES % (AUTO) 10.7 % (2.0-12.0); NEUTROPHILS # (AUTO) 5.1 K/uL (1.8-8.9); NEUTROPHILS % (AUTO) 70.8 % (43.0-81.0); PLATELET COUNT (AUTO) 195 K/uL (150-450); RED BLOOD CELL COUNT(AUTO) 3.09 MIL/uL (4.0-5.2); WHITE BLOOD COUNT (AUTO) 7.2 K/uL (4.3-11.0)
[2022-07-05 06:11] LABS: ALANINE AMINOTRANSFERASE 17 U/L (12-78); ALBUMIN 2.6 g/dL (3.4-5.0); ALKALINE PHOSPHATASE 67 U/L (46-116); ASPARTATE AMINOTRANSFERASE 18 U/L (15-37); BILIRUBIN,TOTAL 0.3 mg/dL (0.2-1.0); CALCIUM, SERUM 7.7 mg/dL (8.5-10.1); CARBON DIOXIDE 28 mmol/L (21-32); CHLORIDE 106 mmol/L (98-107); CREATININE 2.5 mg/dL (0.6-1.3); GLUCOSE 86 mg/dL (74-106); POTASSIUM 4.1 mmol/L (3.5-5.1); SODIUM SERUM 140 mmol/L (136-145); TOTAL PROTEIN, SERUM 5.7 g/dL (6.4-8.2); UREA NITROGEN, BLOOD 68 mg/dL (7-18)
[2022-07-05] MEDS: BLOOD SUGAR DIAGNOSTIC 1 EACH STRIP VI SCH ×4 (06:31→22:07)
[2022-07-05] MEDS: *INSULIN REGULAR(HUMULIN R)HUM 100 UNIT/ML VIAL SQ PRN (06:32)
--- NOTE | 2022-07-05 06:37 | NUR ---
RN CLOSING NOTES PT IN BED, ASLEEP, AWAKENS TO VERBAL STIMULI. AOx4. ON RA AND TOLERATING WELL. NO SOB NOTED. NO S/SX OF RESPIRATORY DISTRESS NOTED. ON RA AND TOLERATING WELL. TELE MONITOR DETECTS SINUS BRADYCARDIA WITH BBB AND PVC. IV ACCESS IN L HAND#20G. IV IS INTACT, PATENT, AND FLUSHING WELL. ALL ORDERS CARRIED OUT. ALL NEEDS MET. PT KEPT CLEAN AND DRY. SAFETY PRECAUTIONS IN PLACE: BED IN LOWEST, LOCKED POSITION, SIDERAILS UPx2, AND BRAKES ON. TABLE AND CALL LIGHT WITHIN REACH. WILL ENDORSE TO ONCOMING SHIFT FOR JAX.
[2022-07-05 07:00] VITALS: BP 144/61
--- NOTE | 2022-07-05 07:30 | NUR ---
RN OPENING NOTES RECEIVED PATIENT ON BED AWAKE AND VERBALLY RESPONSIVE . ROOM AIR TOLERATING WELL. NO SOB NOTED. NO S/SX OF RESPIRATORY DISTRESS NOTED. . TELE MONITOR DETECTS SINUS BRADYCARDIA WITH BBB . IV ACCESS IN L HAND#20G. IV IS INTACT, PATENT, AND FLUSHING WELL. SAFETY PRECAUTIONS IN PLACE: BED IN LOWEST, LOCKED POSITION, SIDERAILS UPx2, AND BRAKES ON. TABLE AND CALL LIGHT WITHIN REACH. WILL CONTINUE TO MONITOR .
[2022-07-05] MEDS: LEVOTHYROXINE SODIUM 100 MCG TABLET PO SCH (08:02)
[2022-07-05] MEDS: PANTOPRAZOLE 40 MG TABLET.DR PO SCH (08:02)
[2022-07-05] MEDS: GLIMEPIRIDE 4 MG TABLET PO SCH ×2 (08:02→17:19)
[2022-07-05] MEDS: FUROSEMIDE 20 MG/2 ML VIAL IV SCH ×2 (09:15→17:16)
[2022-07-05] MEDS: DOXAZOSIN MESYLATE (1 MG) 1 MG TABLET PO SCH (09:16)
[2022-07-05] MEDS: GABAPENTIN 300 MG CAPSULE PO SCH ×3 (09:16→17:16)
[2022-07-05] MEDS: PAROXETINE HCL 20 MG TABLET PO SCH (09:17)
[2022-07-05] MEDS: ASCORBIC ACID 500 MG TABLET PO SCH (09:18)
[2022-07-05] MEDS: RIVAROXABAN 10 MG TABLET PO SCH ×2 (09:19→17:17)
[2022-07-05] MEDS: ASPIRIN EC 81 MG TABLET.DR PO SCH (09:25)
[2022-07-05] MEDS: OLOPATADINE HCL 0.1% OPHTH BOTTLE EACHEYE SCH ×3 (09:29→17:16)
[2022-07-05 12:00] VITALS: BP 133/55
[2022-07-05] MEDS: INSULIN REGULAR, HUMAN 100 UNIT/ML 3 ML VIAL SQ PRN ×2 (13:40→17:50)
[2022-07-05 16:00] VITALS: BP 108/59
--- NOTE | 2022-07-05 19:00 | NUR ---
RN CLOSING NOTES PATIENT ON BED AWAKE AND VERBALLY RESPONSIVE . ROOM AIR TOLERATING WELL. NO SOB NOTED. NO S/SX OF RESPIRATORY DISTRESS NOTED. ALL DUE MEDS ORDERED GIVEN TELE MONITOR DETECTS SINUS BRADYCARDIA 58 . IV ACCESS IN L HAND#20G. IV IS INTACT, PATENT, AND FLUSHING WELL. SAFETY PRECAUTIONS IN PLACE: BED IN LOWEST, LOCKED POSITION, SIDERAILS UPx2, AND BRAKES ON. TABLE AND CALL LIGHT WITHIN REACH. WILL ENDORSED TO NEXT SHIFT .
--- NOTE | 2022-07-05 19:34 | NUR ---
RN OPENING NOTES RECEIVED PATIENT IN BED, ASLEEP, AWAKENS TO VERBAL STIMULI. AOx4. NO SOB NOTED. NO S/SX OF RESPIRATORY DISTRESS NOTED. ON RA AND TOLERATING WELL. 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 IV ACCESS IN L HAND#20G. IV IS INTACT, PATENT, AND FLUSHING WELL. ALL SAFETY PRECAUTIONS IN PLACE: BED IN LOWEST, LOCKED POSITION, SIDE RAILS UPx2, AND BRAKES ON. TABLE AND CALL LIGHT WITHIN REACH. ALL NEEDS MET AT THIS TIME.WILL CONTINUE TO MONITOR CLOSELY.
[2022-07-05 20:00] VITALS: BP 135/56
[2022-07-05] MEDS: ATORVASTATIN 40 MG TABLET PO SCH (21:23)
[2022-07-06 04:00] VITALS: BP 131/58
[2022-07-06 05:59] LABS: BASOPHILS % (AUTO) 0.7 % (0.0-2.0); EOSINOPHILS % (AUTO) 4.9 % (0.0-6.0); HEMATOCRIT 26 % (33-45); HEMOGLOBIN 8.2 g/dL (11.5-14.8); LYMPHOCYTES % (AUTO) 14.9 % (20.0-44.0); MEAN CORPUSCULAR HGB CONC 32 g/dl (31.0-36.0); MEAN CORPUSCULAR VOLUME 84 fL (82-100); MONOCYTES # (AUTO) 0.7 K/uL (0.1-1.30); MONOCYTES % (AUTO) 10.2 % (2.0-12.0); NEUTROPHILS # (AUTO) 4.8 K/uL (1.8-8.9); NEUTROPHILS % (AUTO) 69.3 % (43.0-81.0); PLATELET COUNT (AUTO) 198 K/uL (150-450); RED BLOOD CELL COUNT(AUTO) 3.05 MIL/uL (4.0-5.2); WHITE BLOOD COUNT (AUTO) 6.9 K/uL (4.3-11.0)
[2022-07-06 06:02] LABS: ALANINE AMINOTRANSFERASE 19 U/L (12-78); ALBUMIN 2.5 g/dL (3.4-5.0); ALKALINE PHOSPHATASE 71 U/L (46-116); ASPARTATE AMINOTRANSFERASE 16 U/L (15-37); BILIRUBIN,TOTAL 0.3 mg/dL (0.2-1.0); CALCIUM, SERUM 7.7 mg/dL (8.5-10.1); CARBON DIOXIDE 28 mmol/L (21-32); CHLORIDE 106 mmol/L (98-107); CREATININE 2.6 mg/dL (0.6-1.3); GLUCOSE 86 mg/dL (74-106); SODIUM SERUM 139 mmol/L (136-145); TOTAL PROTEIN, SERUM 5.5 g/dL (6.4-8.2); UREA NITROGEN, BLOOD 67 mg/dL (7-18)
[2022-07-06] MEDS: LEVOTHYROXINE SODIUM 100 MCG TABLET PO SCH (06:22)
[2022-07-06] MEDS: BLOOD SUGAR DIAGNOSTIC 1 EACH STRIP VI SCH ×4 (06:31→22:22)
--- NOTE | 2022-07-06 06:51 | NUR ---
THERMO PROCESSOR CLOSING NOTES PATIENT IN BED, ASLEEP, AWAKENS TO VERBAL STIMULI. AOx4. NO SOB NOTED. NO S/SX OF RESPIRATORY DISTRESS NOTED. ON RA AND TOLERATING WELL. 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 IV ACCESS IN L HAND#20G. IV IS INTACT, PATENT, AND FLUSHING WELL. ALL DUE MEDS GIVEN ORDERED.ALL SAFETY PRECAUTIONS IN PLACE: BED IN LOWEST, LOCKED POSITION, SIDE RAILS UPx2, AND BRAKES ON. TABLE AND CALL LIGHT WITHIN REACH. ALL NEEDS MET AT THIS TIME.WILL ENDORSE FOR [facility].
[2022-07-06 07:00] VITALS: BP 123/48
--- NOTE | 2022-07-06 07:00 | NUR ---
BANQUET FOOD SERVER OPENING NOTES: RECEIVED PT IN BED AWAKE, ALERT AND ORIENTED X 4 NEPALI SPEAKING AND ABLE TO MAKE NEEDS KNOWN. NO SOB OR CARDIAC DISTRESS NOTED. DENIES PAIN AT THIS TIME, ON SKID MACHINE OPERATOR WITH CURRENT READING OF V PVCS 72 BPM. . SAFETY MEASURES MAINTAINED : BED LOCKED AND IN LOWEST POSITION. SIDE RAILS UP X 2 CALL LIGHT AND BED SIDE TABLE IN EASY REACH FOR HELP. WILL MONITOR PT ACCORDINGLY.
[2022-07-06] MEDS: GLIMEPIRIDE 4 MG TABLET PO SCH ×2 (07:47→17:10)
[2022-07-06] MEDS: PANTOPRAZOLE 40 MG TABLET.DR PO SCH (07:47)
[2022-07-06] MEDS: GABAPENTIN 300 MG CAPSULE PO SCH ×3 (09:03→17:10)
[2022-07-06] MEDS: PAROXETINE HCL 20 MG TABLET PO SCH (09:03)
[2022-07-06] MEDS: ASCORBIC ACID 500 MG TABLET PO SCH (09:03)
[2022-07-06] MEDS: ASPIRIN EC 81 MG TABLET.DR PO SCH (09:04)
[2022-07-06] MEDS: DOXAZOSIN MESYLATE (1 MG) 1 MG TABLET PO SCH (09:05)
[2022-07-06] MEDS: ERGOCALCIFEROL (VITAMIN D 2) 50,000 UNIT CAPSULE PO SCH (09:09)
[2022-07-06] MEDS: OLOPATADINE HCL 0.1% OPHTH BOTTLE EACHEYE SCH ×3 (09:09→17:12)
[2022-07-06] MEDS: RIVAROXABAN 10 MG TABLET PO SCH ×2 (09:14→17:13)
[2022-07-06] MEDS ORDERED: FUROSEMIDE 20 MG TABLET PO SCH (09:32)
[2022-07-06] MEDS: *INSULIN REGULAR(HUMULIN R)HUM 100 UNIT/ML VIAL SQ PRN (12:04)
[2022-07-06] MEDS: FUROSEMIDE 20 MG TABLET PO SCH (17:14)
[2022-07-06] MEDS: INSULIN REGULAR, HUMAN 100 UNIT/ML 3 ML VIAL SQ PRN ×2 (17:15→22:36)
--- NOTE | 2022-07-06 19:00 | NUR ---
DAY CARE ATTENDANT CLOSING NOTES: PATIENT IN BED, AWAKE ALERT AND ORIENTED X 3-4 JORDANIAN SPEAKER AND ABLE TO MAKE NEEDS KNOWN. NO SOB OR CARDIAC DISTRESS NOTED.RACK PULLER ATTACHED WITH CURRENT READING SINUS @60BPM WITH PVCS AND BBB. DENIES PAIN AT THIS TIME. ON ROOM AIR AN TOLERATING WELL. IV ACCES NOTED ON LEFT HAND GAUGE 20 PATENT AND INTACT AND AND SALINE LOCKED. SAFETY MEASURES MAINTAINED: BED LOCKED AND IN LOWEST POSITION, SIDE RAILS UP X 2 CALL IGHT AND BED SIDE TABLE IN EASY REACH. ENDORSED TO IT NETWORK ENGINEER RN FOR CONTINUITY OF CARE.
--- NOTE | 2022-07-06 19:50 | NUR ---
OXIDIZED FINISH PLATER OPENING NOTE RECEIVED PT IN BED AWAKE, ALERT AND ORIENTED X 4, AZERI SPEAKING. PT ABLE TO MAKE NEEDS KNOWN. NO SOB OR CARDIAC DISTRESS NOTED. DENIES PAIN AT THIS TIME, ON PROTOTYPE ENGINEER MANAGER WITH CURRENT READING OF V PVCS 60 BPM. SAFETY MEASURES MAINTAINED : BED LOCKED, AND IN LOWEST POSITION. SIDE RAILS UP X 2, CALL LIGHT, AND BED SIDE TABLE IN EASY REACH. WILL MONITOR PT ACCORDINGLY.
[2022-07-06 20:00] VITALS: BP 143/49
[2022-07-06] MEDS: ATORVASTATIN 40 MG TABLET PO SCH (22:21)
[2022-07-07] VITALS: BP 152/58
[2022-07-07 04:00] VITALS: BP 147/55
[2022-07-07] MEDS: LEVOTHYROXINE SODIUM 100 MCG TABLET PO SCH (06:22)
[2022-07-07 06:58] LABS: BASOPHILS % (AUTO) 0.5 % (0.0-2.0); EOSINOPHILS % (AUTO) 4.4 % (0.0-6.0); HEMATOCRIT 26 % (33-45); HEMOGLOBIN 8.5 g/dL (11.5-14.8); LYMPHOCYTES # (AUTO) 1.1 K/uL (0.8-4.8); LYMPHOCYTES % (AUTO) 11.9 % (20.0-44.0); MEAN CORPUSCULAR HGB CONC 32 g/dl (31.0-36.0); MEAN CORPUSCULAR VOLUME 84 fL (82-100); MONOCYTES # (AUTO) 0.9 K/uL (0.1-1.30); MONOCYTES % (AUTO) 10.1 % (2.0-12.0); NEUTROPHILS # (AUTO) 6.5 K/uL (1.8-8.9); NEUTROPHILS % (AUTO) 73.1 % (43.0-81.0); PLATELET COUNT (AUTO) 218 K/uL (150-450); RED BLOOD CELL COUNT(AUTO) 3.14 MIL/uL (4.0-5.2); WHITE BLOOD COUNT (AUTO) 8.9 K/uL (4.3-11.0)
[2022-07-07 07:00] VITALS: BP 140/46
--- NOTE | 2022-07-07 07:00 | NUR ---
STORE WAREHOUSE ASSOCIATE CLOSING NOTE PT LEFT IN BED, IN STABLE CONDITION. WILL ENDORSE TO AM SHIFT NURSE FOR JAX.
--- NOTE | 2022-07-07 07:45 | NUR ---
RN OPENING NOTES: RECEIVED PT IN BED AWAKE, ALERT AND ORIENTED X 4 INDONESIAN SPEAKING AND ABLE TO MAKE NEEDS KNOWN. NO SOB OR CARDIAC DISTRESS NOTED. DENIES PAIN AT THIS TIME, ON BAG SEALER. IV ACCESS: LEFT HAND #20G, INTACT AND PATENT, SL.SAFETY MEASURES IMPLEMENTED: CALL LIGHT AND TABLE WITHIN REACH, HOB ELEVATED, SIDE RAILS UP X 2, BED IN LOWEST LOCKED POSITION. WILL CONTINUE TO MONITOR.
[2022-07-07] MEDS: BLOOD SUGAR DIAGNOSTIC 1 EACH STRIP VI SCH ×2 (08:00→11:48)
[2022-07-07] MEDS: PAROXETINE HCL 20 MG TABLET PO SCH (08:33)
[2022-07-07] MEDS: OLOPATADINE HCL 0.1% OPHTH BOTTLE EACHEYE SCH ×2 (08:33→13:30)
[2022-07-07] MEDS: ASCORBIC ACID 500 MG TABLET PO SCH (08:34)
[2022-07-07] MEDS: GLIMEPIRIDE 4 MG TABLET PO SCH (08:34)
[2022-07-07] MEDS: PANTOPRAZOLE 40 MG TABLET.DR PO SCH (08:34)
[2022-07-07 08:35] VITALS: BP 140/46
[2022-07-07] MEDS: FUROSEMIDE 20 MG TABLET PO SCH (08:35)
[2022-07-07] MEDS: GABAPENTIN 300 MG CAPSULE PO SCH ×2 (08:35→13:30)
[2022-07-07] MEDS: DOXAZOSIN MESYLATE (1 MG) 1 MG TABLET PO SCH (08:35)
[2022-07-07] MEDS: ASPIRIN EC 81 MG TABLET.DR PO SCH (08:37)
[2022-07-07] MEDS: RIVAROXABAN 10 MG TABLET PO SCH (08:37)
[2022-07-07] MEDS: INSULIN REGULAR, HUMAN 100 UNIT/ML 3 ML VIAL SQ PRN (11:52)
--- NOTE | 2022-07-07 15:30 | NUR ---
SIGNAL TOWER OPERATOR NOTE- PT DISCHARGE IN STABLE MEDICAL CONDITION. A/OX4. V/S TAKEN, STABLE AND RECORDED. IV ACCESS REMOVED. NAME ARM BAND REMOVED. EXTERNAL SHEET METAL WORKER HELPER REMOVED AND RETURNED TO TELE DESK. SKIN ASSESSMENT DONE. ALL BELONGINGS CHECKED AND SIGNED. HEALTH TEACHING AND DISCHARGE INSTRUCTION GIVEN TO THE PATIENT, VERBALIZED UNDERSTANDING. PATIENT LEFT VIA PRIVATE CAR WITH HER FAMILY WITH NO SIGN OF DISTRESS. CHARGE NURSE AWARE OF DISCHARGE.
== END 2022-07-07 15:30 | disposition home health service (06) | DRG 291 ==
LOC: ER 18:37 → TELE 06-27 01:47
PROVIDERS: ADMIT Nurse Practitioner Acute Care; ATTEND Internal Medicine
DX: I13.0 Hypertensive heart and chronic kidney disease with heart failure and stage 1 through stage 4 chronic kidney disease, or unspecified chronic kidney disease (principal); I50.33 Acute on chronic diastolic (congestive) heart failure; N17.0 Acute kidney failure with tubular necrosis; E87.1 Hypo-osmolality and hyponatremia; I48.20 Chronic atrial fibrillation, unspecified; J98.11 Atelectasis; N18.5 Chronic kidney disease, stage 5; E11.22 Type 2 diabetes mellitus with diabetic chronic kidney disease; N14.11 Contrast-induced nephropathy; Z20.822 Contact with and (suspected) exposure to COVID-19; Z95.2 Presence of prosthetic heart valve; Y92.009 Unspecified place in unspecified non-institutional (private) residence as the place of occurrence of the external cause; W01.0XXA Fall on same level from slipping, tripping and stumbling without subsequent striking against object, initial encounter; M25.531 Pain in right wrist; Z79.01 Long term (current) use of anticoagulants; Z79.899 Other long term (current) drug therapy; Z79.84 Long term (current) use of oral hypoglycemic drugs; Z79.82 Long term (current) use of aspirin; Z79.51 Long term (current) use of inhaled steroids; Z98.61 Coronary angioplasty status; I25.10 Atherosclerotic heart disease of native coronary artery without angina pectoris; E78.5 Hyperlipidemia, unspecified; I34.0 Nonrheumatic mitral (valve) insufficiency; I27.20 Pulmonary hypertension, unspecified; E03.9 Hypothyroidism, unspecified; I25.2 Old myocardial infarction; Z90.49 Acquired absence of other specified parts of digestive tract; E87.5 Hyperkalemia; D72.829 Elevated white blood cell count, unspecified; Z86.73 Personal history of transient ischemic attack (TIA), and cerebral infarction without residual deficits; E83.51 Hypocalcemia; D63.8 Anemia in other chronic diseases classified elsewhere; N26.1 Atrophy of kidney (terminal); Z79.02 Long term (current) use of antithrombotics/antiplatelets; I44.7 Left bundle-branch block, unspecified; R00.1 Bradycardia, unspecified; T50.8X5A Adverse effect of diagnostic agents, initial encounter; R60.9 Edema, unspecified; T46.4X5A Adverse effect of angiotensin-converting-enzyme inhibitors, initial encounter; T44.5X5A Adverse effect of predominantly beta-adrenoreceptor agonists, initial encounter
CPT/HCPCS: 36415; 70450-TC; 71045-TC; 71250-TC; 73110; 73130-TC; 80048-TC; 80053-TC; 82962-TC; 83735-TC; 83880; 84100-TC; 84484-TC; 85025-TC; 87081-TC; 93307-TC; 93970-TC; 94799-TC; 97110-TC; 97112-TC; 97116-TC; 97530-TC; C9803; G0378; J0696; J1815; J1940; J3490; J7030; J7060

== ENCOUNTER 2022-09-11 10:13 | Outpatient (CLI) | payer MEDICARE, OTHER ==
[~2022-09-11 10:13] MED LIST changes: -HYDR-4077 PO; +PARO20TA7 PO
== END 2022-09-11 23:59 | disposition home or self-care (01) ==
LOC: WOU 10:13
PROVIDERS: ATTEND Podiatrist Foot & Ankle Surgery
DX: M79.662 Pain in left lower leg (principal); M79.661 Pain in right lower leg; E11.9 Type 2 diabetes mellitus without complications; Z79.84 Long term (current) use of oral hypoglycemic drugs; R26.2 Difficulty in walking, not elsewhere classified; Z79.01 Long term (current) use of anticoagulants; Z79.82 Long term (current) use of aspirin
CPT/HCPCS: G0463

== ENCOUNTER 2022-11-03 10:56 | Emergency (ER) | payer MEDICARE, OTHER ==
[~2022-11-03] VITALS: Ht 165.1 cm; Wt 62.1 kg
--- NOTE | 2022-11-03 11:05 | NUR ---
C/O RIGHT ARM AND RIGHT LEG PAIN S/P TRIP AND FALL YESTERDAY. NO LOC. VITALS ARE WITHIN NORMAL LIMITS. PAIN IS 6/10 ON PAIN SCALE. AWAITING MD ARMANDO AND ORDERS.
[2022-11-03] MEDS ORDERED: ACETAMINOPHEN ES 500 MG TABLET ONE (11:58)
[2022-11-03] MEDS ORDERED: ACETAMINOPHEN ES 500 MG TABLET PO ONE (12:00)
[2022-11-03 12:36] VITALS: BP 130/51
--- NOTE | 2022-11-03 12:36 | NUR ---
Patient discharged to home in stable condition. Written and verbal after care instructions given. Patient verbalizes understanding of instruction.
== END 2022-11-03 12:36 | disposition home or self-care (01) ==
LOC: ER 11:05
DX: M25.531 Pain in right wrist (principal); I12.0 Hypertensive chronic kidney disease with stage 5 chronic kidney disease or end stage renal disease; E11.22 Type 2 diabetes mellitus with diabetic chronic kidney disease; N18.6 End stage renal disease; Z99.2 Dependence on renal dialysis; Z95.1 Presence of aortocoronary bypass graft; Z79.899 Other long term (current) drug therapy; Z79.82 Long term (current) use of aspirin; W18.30XA Fall on same level, unspecified, initial encounter; Y93.89 Activity, other specified; Y92.000 Kitchen of unspecified non-institutional (private) residence as the place of occurrence of the external cause; Y99.8 Other external cause status
CPT/HCPCS: 71045-TC; 72170-TC; 73110; 73502

== ENCOUNTER 2024-08-05 15:00 | Inpatient (IN) | payer MEDICARE, OTHER ==
[~2024-08-05] VITALS: Ht 165.1 cm; Wt 63.5 kg
[2024-08-05] MEDS: METOPROLOL TARTRATE 25 MG TABLET PO ONE (16:15)
[2024-08-05] MEDS ORDERED: METOPROLOL TARTRATE INJ 5 MG/5 ML AMPUL ONE (16:16)
[2024-08-05] MEDS ORDERED: METOPROLOL TARTRATE 25 MG TABLET ONE (16:17)
[2024-08-05 16:29] LABS: BASOPHILS # (AUTO) 0.1 K/uL (0.0-0.2); EOSINOPHILS # (AUTO) 0.2 K/uL (0.0-0.7); EOSINOPHILS % (AUTO) 1.8 % (0.0-6.0); HEMATOCRIT 38 % (33-45); LYMPHOCYTES # (AUTO) 1.9 K/uL (0.8-4.8); LYMPHOCYTES % (AUTO) 16.9 % (20.0-44.0); MEAN CORPUSCULAR HEMOGLOBIN 30 PG (26.0-33.0); MEAN CORPUSCULAR HGB CONC 31 g/dl (31.0-36.0); MEAN CORPUSCULAR VOLUME 94 fL (82-100); MONOCYTES # (AUTO) 0.9 K/uL (0.1-1.30); MONOCYTES % (AUTO) 7.6 % (2.0-12.0); NEUTROPHILS # (AUTO) 8.4 K/uL (1.8-8.9); NEUTROPHILS % (AUTO) 72.7 % (43.0-81.0); PLATELET COUNT (AUTO) 221 K/uL (150-450); RED BLOOD CELL COUNT(AUTO) 4.08 MIL/uL (4.0-5.2); RED CELL DISTRIBUTION WIDTH 21.1 % (11.5-15.0); WHITE BLOOD COUNT (AUTO) 11.5 K/uL (4.3-11.0)
[2024-08-05] MEDS: METOPROLOL TARTRATE INJ 5 MG/5 ML AMPUL IV ONE (16:30)
[2024-08-05 16:36] LABS: CALCIUM, SERUM 8.7 mg/dL (8.5-10.1); CARBON DIOXIDE 31 mmol/L (21-32); CHLORIDE 100 mmol/L (98-107); CREATININE 3.1 mg/dL (0.6-1.3); GLUCOSE 116 mg/dL (74-106); POTASSIUM 4.1 mmol/L (3.5-5.1); SODIUM SERUM 137 mmol/L (136-145); UREA NITROGEN, BLOOD 22 mg/dL (7-18)
[2024-08-05 16:49] LABS: ALANINE AMINOTRANSFERASE 12 U/L (12-78); ALBUMIN 3.4 g/dL (3.4-5.0); ALKALINE PHOSPHATASE 116 U/L (46-116); ASPARTATE AMINOTRANSFERASE 14 U/L (15-37); BILIRUBIN,DIRECT 0.3 mg/dL (0.0-0.2); BILIRUBIN,TOTAL 0.6 mg/dL (0.2-1.0); NT-PRO BNP > 25000 pg/mL (0-125); TOTAL PROTEIN, SERUM 6.8 g/dL (6.4-8.2)
[2024-08-05] MEDS ORDERED: ACETAMINOPHEN ES 500 MG TABLET ONE (19:42)
[2024-08-05] MEDS: ACETAMINOPHEN ES 500 MG TABLET PO ONE (19:46)
[2024-08-05] MEDS ORDERED: ONDANSETRON HCL/PF 4 MG/2 ML VIAL IVP PRN (20:00)
[2024-08-05] MEDS ORDERED: MAG HYDROX/AL HYDROX/SIMETH 30 ML UDC PO PRN (20:00)
[2024-08-05] MEDS ORDERED: MAGNESIUM HYDROXIDE 30 ML UDC PO PRN (20:00)
[2024-08-05] MEDS ORDERED: ACETAMINOPHEN 325 MG TABLET PO PRN (20:00)
[2024-08-06] MEDS ORDERED: HYDR-4303 PO (01:03)
[2024-08-06] MEDS ORDERED: PYRI25TA4 PO (01:03)
[2024-08-06] MEDS ORDERED: ASPI-1169 PO (01:03)
[2024-08-06] MEDS ORDERED: APIX2.5T PO (01:03)
[2024-08-06] MEDS ORDERED: CYPR4SYR PO (01:03)
[2024-08-06] MEDS ORDERED: ALOG6.252 PO (01:03)
[2024-08-06] MEDS ORDERED: LEVO137T2 PO (01:03)
[2024-08-06] MEDS ORDERED: SENN-261 PO (01:03)
[2024-08-06] MEDS ORDERED: ZOLP10TA2 PO (01:03)
[2024-08-06] MEDS ORDERED: ACET-868 PO (01:03)
[2024-08-06] MEDS ORDERED: MIDO10TA PO (01:03)
[2024-08-06] MEDS ORDERED: DOCU-141 PO (01:03)
[2024-08-06] MEDS ORDERED: OMEP20CA15 PO (01:03)
[2024-08-06] MEDS ORDERED: DOCUSATE SODIUM 100 MG CAPSULE PO PRN (01:30)
[2024-08-06] MEDS ORDERED: LORAZEPAM INJ 2 MG/ML VIAL ONE (03:19)
[2024-08-06] MEDS: LORAZEPAM INJ 2 MG/ML VIAL IV ONE (03:42)
[2024-08-06 08:05] VITALS: BP 134/80; TEMP 97.7; O2SAT 100
[2024-08-06] MEDS: LINAGLIPTIN 5 MG TABLET PO SCH (09:07)
[2024-08-06] MEDS: ASPIRIN 81 MG TAB.CHEW PO SCH (09:08)
[2024-08-06] MEDS: METOPROLOL TARTRATE 25 MG TABLET PO SCH (09:08)
[2024-08-06] MEDS: PANTOPRAZOLE 40 MG TABLET.DR PO SCH (09:08)
[2024-08-06] MEDS: LEVOTHYROXINE SODIUM 137 MCG TABLET PO SCH (09:09)
[2024-08-06] MEDS: APIXABAN 2.5 MG TABLET PO SCH (09:09)
[2024-08-06] MEDS: DIGOXIN INJ 0.5 MG/2 ML AMPUL IV SCH (12:12)
[2024-08-06 16:08] LABS: BASOPHILS # (AUTO) 0.1 K/uL (0.0-0.2); EOSINOPHILS # (AUTO) 0.1 K/uL (0.0-0.7); LYMPHOCYTES # (AUTO) 1.1 K/uL (0.8-4.8); LYMPHOCYTES % (AUTO) 10.9 % (20.0-44.0); MEAN CORPUSCULAR HEMOGLOBIN 30 PG (26.0-33.0); MONOCYTES # (AUTO) 0.7 K/uL (0.1-1.30)
[2024-08-06 16:16] LABS: BASOPHILS % (AUTO) 0.7 % (0.0-2.0); HEMATOCRIT 39 % (33-45); HEMOGLOBIN 12.6 g/dL (11.5-14.8); MEAN CORPUSCULAR HGB CONC 32 g/dl (31.0-36.0); MEAN CORPUSCULAR VOLUME 94 fL (82-100); MONOCYTES % (AUTO) 6.7 % (2.0-12.0); NEUTROPHILS # (AUTO) 8.2 K/uL (1.8-8.9); NEUTROPHILS % (AUTO) 80.7 % (43.0-81.0); PLATELET COUNT (AUTO) 208 K/uL (150-450); RED BLOOD CELL COUNT(AUTO) 4.16 MIL/uL (4.0-5.2); RED CELL DISTRIBUTION WIDTH 21.1 % (11.5-15.0); WHITE BLOOD COUNT (AUTO) 10.2 K/uL (4.3-11.0)
[2024-08-06 16:26] LABS: CALCIUM, SERUM 8.4 mg/dL (8.5-10.1); CREATININE 4.3 mg/dL (0.6-1.3); PHOSPHORUS 5.2 mg/dL (2.5-4.9); POTASSIUM 4.8 mmol/L (3.5-5.1)
[2024-08-06 16:59] LABS: THYROID STIMULATING HORMONE 7.98 uIU/mL (0.358-3.74)
[2024-08-06] MEDS: ATORVASTATIN 40 MG TABLET PO SCH (17:21)
[2024-08-06 20:00] VITALS: BP 142/85; TEMP 97.7; O2SAT 100
[2024-08-06] MEDS: SENNOSIDES 8.6 MG TABLET PO SCH (21:58)
[2024-08-06] MEDS: PYRIDOXINE HCL 50 MG TABLET PO SCH (21:58)
[2024-08-07] VITALS: BP 147/81; TEMP 98.1; O2SAT 100
[2024-08-07] MEDS ORDERED: TEMAZEPAM 7.5 MG CAPSULE PO PRN
[2024-08-07] MEDS: TEMAZEPAM 7.5 MG CAPSULE PO PRN (00:05)
[2024-08-07] MEDS: HYDROCORTISONE 1% CREAM 28.35 GM TUBE TP PRN (00:06)
[2024-08-07 04:00] VITALS: BP 142/73; TEMP 98.2; O2SAT 100
[2024-08-07 06:42] LABS: BASOPHILS # (AUTO) 0.1 K/uL (0.0-0.2); BASOPHILS % (AUTO) 1.1 % (0.0-2.0); EOSINOPHILS # (AUTO) 0.2 K/uL (0.0-0.7); EOSINOPHILS % (AUTO) 2.3 % (0.0-6.0); HEMATOCRIT 41 % (33-45); HEMOGLOBIN 13.2 g/dL (11.5-14.8); LYMPHOCYTES # (AUTO) 1.2 K/uL (0.8-4.8); LYMPHOCYTES % (AUTO) 12.1 % (20.0-44.0); MEAN CORPUSCULAR HEMOGLOBIN 31 PG (26.0-33.0); MEAN CORPUSCULAR HGB CONC 32 g/dl (31.0-36.0); MEAN CORPUSCULAR VOLUME 95 fL (82-100); MONOCYTES # (AUTO) 0.8 K/uL (0.1-1.30); MONOCYTES % (AUTO) 8.4 % (2.0-12.0); NEUTROPHILS # (AUTO) 7.6 K/uL (1.8-8.9); NEUTROPHILS % (AUTO) 76.1 % (43.0-81.0); PLATELET COUNT (AUTO) 223 K/uL (150-450); RED BLOOD CELL COUNT(AUTO) 4.28 MIL/uL (4.0-5.2); RED CELL DISTRIBUTION WIDTH 21.4 % (11.5-15.0)
[2024-08-07 06:49] LABS: CALCIUM, SERUM 8.7 mg/dL (8.5-10.1); CREATININE 4.5 mg/dL (0.6-1.3); MAGNESIUM 2.1 mg/dL (1.8-2.4); PHOSPHORUS 4.7 mg/dL (2.5-4.9); POTASSIUM 4.8 mmol/L (3.5-5.1)
[2024-08-07 08:26] VITALS: BP 134/85; TEMP 97.7; O2SAT 100
[2024-08-07] MEDS ORDERED: METO25TA20 PO (09:47)
[2024-08-07 12:07] VITALS: BP 147/81; TEMP 98.1; O2SAT 100
== END 2024-08-07 15:48 | DRG 308 ==
LOC: ER 15:05 → TELE 08-06 03:58 → TRANSITION 08-06 05:39 → TELE-TD 08-06 07:13 → TELE1 08-06 10:32 → MEDSG1 08-07 08:43
DX: I48.91 Unspecified atrial fibrillation (principal); N18.6 End stage renal disease; I13.2 Hypertensive heart and chronic kidney disease with heart failure and with stage 5 chronic kidney disease, or end stage renal disease; I50.32 Chronic diastolic (congestive) heart failure; J98.11 Atelectasis; E11.22 Type 2 diabetes mellitus with diabetic chronic kidney disease; E78.5 Hyperlipidemia, unspecified; Z95.2 Presence of prosthetic heart valve; E03.9 Hypothyroidism, unspecified; Z79.890 Hormone replacement therapy; Z79.899 Other long term (current) drug therapy; Z99.2 Dependence on renal dialysis; Z95.5 Presence of coronary angioplasty implant and graft; M89.8X9 Other specified disorders of bone, unspecified site; Z79.01 Long term (current) use of anticoagulants; Z79.02 Long term (current) use of antithrombotics/antiplatelets; I25.10 Atherosclerotic heart disease of native coronary artery without angina pectoris; D72.829 Elevated white blood cell count, unspecified; Z79.84 Long term (current) use of oral hypoglycemic drugs; Z86.73 Personal history of transient ischemic attack (TIA), and cerebral infarction without residual deficits; Z90.49 Acquired absence of other specified parts of digestive tract; I25.2 Old myocardial infarction; R91.8 Other nonspecific abnormal finding of lung field
CPT/HCPCS: 36415; 71045-TC; 80048-TC; 80076-TC; 83735-TC; 83880; 84100-TC; 84443-TC; 84484-TC; 85025-TC; 93307-TC; 97116-TC; 97530-TC; G0378; J1160; J2060; J3490